=== PATIENT | female | born 1960 | race Caucasian/White ===

== ENCOUNTER 2022-07-09 07:22 | Inpatient (IN) | payer OTHER, MEDICAID ==
[~2022-07-09] VITALS: Ht 162.6 cm; Wt 73.0 kg
--- NOTE | 2022-07-09 13:38 | NUR ---
Admission Note: Pt. was admitted to the unit on a gurney via EMS transport from [facility]. Pt. is on a 5150 for DTS and GD. Per 5150: Pt. admitted to ongoing derogatory, disturbing auditory hallucinations. Pt. appeared distracted and disorganized. Pt. did not know if she could keep herself safe. Pt. has a history of schizophrenia and depression and was not taking medications. Pt. was compliant with the admission process and is currently reporting S/I with a plan to stop eating. She scores as a high risk on the [place] Suicide Risk Assessment and this was endorsed to Dr. Jang, Q 15min safety checks were ordered. Pt. is able to contract for safety while on the unit. Pt. also reports a previous suicide attempt involving carbon monoxide poisoning which caused her to accumulate blood in her brain requiring surgery. Pt. reports her speech has been slurred ever since this event. Pt. also reports ongoing A/BOSWELL which tell her, "She's a liar," and are command in nature at times. Pt. reports she drinks approximately 2 mixed drinks per day, but has never experienced any s/s of alcohol withdrawal. She also last used methamphetamines approximately 3 days ago.
[2022-07-09] MEDS ORDERED: mag hydrox/Alum hydrox/simeth 30ml oral suspension PO PRN (13:55)
[2022-07-09] MEDS ORDERED: loperamide 2mg capsule PO PRN (13:55)
[2022-07-09] MEDS ORDERED: acetaminophen 325mg tablet PO PRN (13:55)
[2022-07-09 14:14] VITALS: BP 122/76
[2022-07-09] MEDS: magnesium hydroxide 30ml (MOM) UD suspension PO PRN (16:33)
[2022-07-09] MEDS ORDERED: MULT-1085 PO (16:34)
[2022-07-09] MEDS ORDERED: KEP500T PO (16:34)
[2022-07-09] MEDS ORDERED: PANT-47 PO (16:34)
[2022-07-09] MEDS ORDERED: TRAZ-251 PO (16:34)
[2022-07-09] MEDS ORDERED: OLAN5TAB3 PO ×2 (16:34)
[2022-07-09] MEDS ORDERED: FOLI1TAB27 PO (16:34)
[2022-07-09] MEDS: NICOTINE POLACRILEX 2 MG LOZENGE BC PRN (19:26)
[2022-07-09 20:00] VITALS: BP 118/73
[2022-07-09] MEDS: levetiracetam 250mg tablet PO SCH (20:44)
[2022-07-09] MEDS ORDERED: traZODone 50mg tablet PO SCH (21:00)
[2022-07-09] MEDS ORDERED: OLANZAPINE 5 MG TABLET PO SCH (21:00)
--- NOTE | 2022-07-10 05:21 | NUR ---
Nursing Progress Note Problem Pt. was admitted to the unit on a gurney via EMS transport from [facility]. Pt. is on a 5150 for DTS and GD. Per 5150: Pt. admitted to ongoing derogatory, disturbing auditory hallucinations. Pt. appeared distracted and disorganized. Pt. did not know if she could keep herself safe. Pt. has a history of schizophrenia and depression and was not taking medications. Pt. was compliant with the admission process and is currently reporting S/I with a plan to stop eating. She scores as a high risk on the [place] Suicide Risk Assessment and this was endorsed to Dr. Jang, Q 15min safety checks were ordered. Pt. is able to contract for safety while on the unit. Pt. also reports a previous suicide attempt involving carbon monoxide poisoning which caused her to accumulate blood in her brain requiring surgery. Pt. reports her speech has been slurred ever since this event. Pt. also reports ongoing A/BOSWELL which tell her, "She's a liar," and are command in nature at times. Pt. reports she drinks approximately 2 mixed drinks per day, but has never experienced any s/s of alcohol withdrawal. She also last used methamphetamines approximately 3 days ago. Interventions: Introduced self and established rapport, maintained a safe and supportive environment, ensured contract for safety, provided clear and simple instructions, provided active listening and positive encouragement, and maintained Q 15min safety checks. Response: Patient was found lying in bed reading at beginning of shift. Patient stayed there until making her way into community room socializing with other patients. Patient was pleasant and cooperative. Patient stated she is hearing voices but its like constant background noise. Patient stated she feels safe here. Patient was worried about her night medications and nurse went over what all of them were for. Patient took medications without issue and returned to community room. Patient did peak out of room checking hallways and was reminded she was okay and safe. Patient came out of room without pants and had to be assisted back into room. Plan: Pt. continues to require a safe and supportive environment and medication adjustments.
[2022-07-10 07:34] LABS: CHOL/HDL RATIO 3.6 (0.00-4.99); CHOLESTEROL 166 MG/DL (0-200); HDL CHOLESTEROL 46 MG/DL (35-60); LDL CHOLESTEROL 91 MG/DL (50-100); TRIGLYCERIDES 173 MG/DL (20-135)
[2022-07-10 08:00] VITALS: BP 124/63
[2022-07-10] MEDS ORDERED: OLANZAPINE 5 MG TABLET PO SCH (08:00)
[2022-07-10 08:10] LABS: HEMOGLOBIN A1C 5.1 % (4.5-6.2)
[2022-07-10] MEDS: folic acid 1mg tablet PO SCH (08:46)
[2022-07-10] MEDS: levetiracetam 250mg tablet PO SCH ×2 (08:47→20:35)
[2022-07-10] MEDS: NICOTINE POLACRILEX 2 MG LOZENGE BC PRN (08:47)
[2022-07-10] MEDS: multivitamins, therapeutics tablet PO SCH (08:47)
[2022-07-10] MEDS: pantoprazole 40mg Tablet.DR PO SCH (08:47)
[2022-07-10] MEDS: magnesium hydroxide 30ml (MOM) UD suspension PO PRN (08:48)
[2022-07-10] MEDS: nicotine 14mg patch - 24hr TD SCH (08:48)
--- NOTE | 2022-07-10 14:27 | NUR ---
Nursing Progress Note: Problem : Pt. was admitted to the unit on a gurney via EMS transport from [facility]. Pt. is on a 5150 for DTS and GD. Per 5150: Pt. admitted to ongoing derogatory, disturbing auditory hallucinations. Pt. appeared distracted and disorganized. Pt. did not know if she could keep herself safe. Pt. has a history of schizophrenia and depression and was not taking medications. Interventions : Maintained a safe and supportive environment, provide clear and simple instructions, attempted to orient to reality, provided active listening and positive encouragement, and maintained Q 15min safety checks. Response : Received pt. sleeping in bed at the beginning of the shift. She attended breakfast in the Group Room with direction from staff and afterwards sat up in bed completing a word search. 1:1 was completed at bedside, pt. presents as cooperative and slightly anxious. When questioned regarding S/I, she states tearfully, "No, but I could just go peacefully." Pt. denies any current S/I plan. She also admits to ongoing command A/BOSWELL at intervals. Pt. states, "Sometimes they just give me advice, like go out on the streets and be homeless." This scientific technical writer provided active listening and positive encouragement and pt. reported contentment. Pt. napped intermittently during the shift, and was observed to be interacting minimally with others. Plan : Pt. requires interruption of current crisis, medication adjustments, and a safe and supportive environment.
[2022-07-10] MEDS ORDERED: traZODone 50mg tablet PO PRN (16:40)
[2022-07-10] MEDS ORDERED: sertraline 25mg tablet PO ONE (16:40)
[2022-07-10 20:00] VITALS: BP 128/80
[2022-07-10] MEDS ORDERED: olanzapine 10mg tablet PO SCH (21:00)
[2022-07-10] MEDS ORDERED: OLANZapine 5mg rapidly disint. tablet PO ONE (21:55)
[2022-07-10] MEDS: traZODone 50mg tablet PO PRN (22:04)
--- NOTE | 2022-07-11 01:40 | NUR ---
Nursing Progress Note: Problem : Pt. was admitted to the unit on a gurney via EMS transport from [facility]. Pt. is on a 5150 for DTS and GD. Per 5150: Pt. admitted to ongoing derogatory, disturbing auditory hallucinations. Pt. appeared distracted and disorganized. Pt. did not know if she could keep herself safe. Pt. has a history of schizophrenia and depression and was not taking medications. Interventions : Maintained a safe and supportive environment, provide clear and simple instructions, attempted to orient to reality, provided active listening and positive encouragement, and maintained Q 15min safety checks. Response :Patient in bed doing crosswords at shift change. Patient denies SI HI. Patient does state that she thinks of starving herself but it would be long and painful. Patient reports +A/H. Patient claims that the voices make negative comments whenever she wants to do something positive for herself. The patient was wearing two sets of reading eye glasses. When asked if she could see out of the glasses the pt responded that she sees better with them on and they help her read. The patient at snack in the community room at snack time. The patient took her evening meds w/o complications. The patient went to sleep a short time later. Plan : Pt. requires interruption of current crisis, medication adjustments, and a safe and supportive environment.
[2022-07-11 08:00] VITALS: BP 96/60
[2022-07-11] MEDS: pantoprazole 40mg Tablet.DR PO SCH (08:45)
[2022-07-11] MEDS: folic acid 1mg tablet PO SCH (08:45)
[2022-07-11] MEDS: sertraline 50mg tablet PO SCH (08:45)
[2022-07-11] MEDS: multivitamins, therapeutics tablet PO SCH (08:45)
[2022-07-11] MEDS: levetiracetam 250mg tablet PO SCH ×2 (08:45→20:19)
[2022-07-11] MEDS: nicotine 14mg patch - 24hr TD SCH (08:46)
[2022-07-11] MEDS: NICOTINE POLACRILEX 2 MG LOZENGE BC PRN ×2 (08:48→15:32)
[2022-07-11] MEDS: magnesium hydroxide 30ml (MOM) UD suspension PO PRN (08:48)
--- NOTE | 2022-07-11 14:19 | NUR ---
Nursing Progress Note: Problem : Pt. was admitted to the unit on a gurney via EMS transport from [facility]. Pt. is on a 5150 for DTS and GD. Per 5150: Pt. admitted to ongoing derogatory, disturbing auditory hallucinations. Pt. appeared distracted and disorganized. Pt. did not know if she could keep herself safe. Pt. has a history of schizophrenia and depression and was not taking medications. Interventions : Maintained a safe and supportive environment, provide clear and simple instructions, attempted to orient to reality, provided active listening and positive encouragement, encouraged independent performance of ADLs, and maintained Q 15min safety checks. Response : Received pt. sleeping in bed at the beginning of the shift, she was awoken to attended breakfast in the Group Room and afterwards retreated back to bed. Pt. greeted this senior grant writer appropriately and requested her morning medications, she continues to present as cooperative and slightly anxious. Pt. continues to endorse ongoing negative A/BOSWELL and states, "They tell me I'd be better off not here." She also endorses passive S/I, however denies any plan but states, "They tell me not to eat sometimes." Pt. appears to have some difficulty expressing her thoughts and she continues to exhibit chronic dysarthria. Pt. was placed on a 5250 mental hai hold. Pt. napped intermittently during the shift, and continues to remain withdrawn from others. She showered independently with set-up help only. Plan : Pt. requires medication adjustments and a safe and supportive environment.
[2022-07-11] MEDS: traZODone 50mg tablet PO PRN (20:19)
[2022-07-11] MEDS: olanzapine 10mg tablet PO SCH (20:19)
[2022-07-11 20:22] VITALS: BP 120/53
--- NOTE | 2022-07-11 23:46 | NUR ---
Nursing Progress Note: Problem : Pt. was admitted to the unit on a gurney via EMS transport from [facility]. Pt. is on a 5150 for DTS and GD. Per 5150: Pt. admitted to ongoing derogatory, disturbing auditory hallucinations. Pt. appeared distracted and disorganized. Pt. did not know if she could keep herself safe. Pt. has a history of schizophrenia and depression and was not taking medications. Interventions : Maintained a safe and supportive environment, provide clear and simple instructions, attempted to orient to reality, provided active listening and positive encouragement, and maintained Q 15min safety checks. Response :Patient in community room sitting with cohorts at shift change. Patient 1:1, pt denies SI HI this shift. Patient does report that she has negative voices telling her that she is worthless and overall negative in her life. patient spent most of the evening in community room socializing with other patients. Patient took evening meds w/o complications. Patient ate snack in the community room. Patient went to bed shortly after snack and med pass. Plan : Pt. requires interruption of current crisis, medication adjustments, and a safe and supportive environment.
[2022-07-12 07:46] VITALS: BP 121/66
[2022-07-12] MEDS: multivitamins, therapeutics tablet PO SCH (08:18)
[2022-07-12] MEDS: nicotine 14mg patch - 24hr TD SCH (08:18)
[2022-07-12] MEDS: folic acid 1mg tablet PO SCH (08:18)
[2022-07-12] MEDS: levetiracetam 250mg tablet PO SCH ×2 (08:18→20:53)
[2022-07-12] MEDS: sertraline 50mg tablet PO SCH (08:18)
[2022-07-12] MEDS: pantoprazole 40mg Tablet.DR PO SCH (08:18)
--- NOTE | 2022-07-12 13:19 | NUR ---
5250 Upheld for DTS and GD
--- NOTE | 2022-07-12 16:50 | NUR ---
Nursing Progress Note: Problem: Pt. was admitted to the unit on a gurney via EMS transport from [facility]. Pt. is on a 5150 for DTS and GD. Per 5150: Pt. admitted to ongoing derogatory, disturbing auditory hallucinations. Pt. appeared distracted and disorganized. Pt. did not know if she could keep herself safe. Pt. has a history of schizophrenia and depression and was not taking medications. Interventions: Provide medication administration & medication management; Maintained a safe & supportive environment; Clear & simple instructions; Direction & encouragement regarding performance of ADLs; monitored behaviors & maintained clear boundaries; Patient physical assessment & 1:1 patient interview; Therapeutic conversation & active listening; Patient education & monitoring. Response: Received patient when I entered her room at 0745 and was awake. Patient took po medications scheduled at 0800 without hesitation. Patient started crying and this Commission Clerk attempted to console her. Patient states I am worthless and Im hearing voices that tell me to hurt myself. Patient underwent 1:1 Physical Assessment and Patient Interview. Patient reports these voices kept her awake last night. Patient denies SI and VH at this time. This personal lines underwriter listened to the patient and assisted her with encouragement. Patient ate breakfast then laid back down in bed and appeared to rest comfortably until lunchtime around 1230. Patient has Hep B & TSH labs pending results at this time. Patient woke up for snacks and meal times but then returned back to bed to rest and appears to be sleeping. Will continue to monitor. Plan: Pt. requires medication adjustments and a safe and supportive environment.
[2022-07-12 19:00] VITALS: BP 138/75
[2022-07-12] MEDS: olanzapine 10mg tablet PO SCH (20:52)
[2022-07-12] MEDS: traZODone 50mg tablet PO PRN (20:52)
[2022-07-13 05:14] LABS: HBSAG SCREEN Negative (Negative); HEP B CORE AB, TOT Negative (Negative)
--- NOTE | 2022-07-13 05:32 | NUR ---
Nursing Progress Note: Problem: Pt. was admitted to the unit on a gurney via EMS transport from [facility]. Pt. is on a 5150 for DTS and GD. Per 5150: Pt. admitted to ongoing derogatory, disturbing auditory hallucinations. Pt. appeared distracted and disorganized. Pt. did not know if she could keep herself safe. Pt. has a history of schizophrenia and depression and was not taking medications. Interventions: Provide medication administration & medication management; Maintained a safe & supportive environment; Clear & simple instructions; Direction & encouragement regarding performance of ADLs; monitored behaviors & maintained clear boundaries; Patient physical assessment & 1:1 patient interview; Therapeutic conversation & active listening; Patient education & monitoring. Response: Patient is pleasant and cooperative with care; compliant with medication. PRN Trazodone provided and Nicotine patch removed. Patient endorsed passive SI; feelings of wanting to but not planning to act on it. She also explained having negative AH; voices telling her nobody cares about her and her family doesn't want her. Patient mostly isolative to room doing crosswords. She participated in HS snack prior to bed; observed sleeping and does not appear to be having difficulty. Plan: Pt. requires medication adjustments and a safe and supportive environment.
[2022-07-13 07:41] VITALS: BP 125/68
[2022-07-13] MEDS: folic acid 1mg tablet PO SCH (08:11)
[2022-07-13] MEDS: pantoprazole 40mg Tablet.DR PO SCH (08:11)
[2022-07-13] MEDS: levetiracetam 250mg tablet PO SCH ×2 (08:12→20:21)
[2022-07-13] MEDS: multivitamins, therapeutics tablet PO SCH (08:12)
[2022-07-13] MEDS: nicotine 14mg patch - 24hr TD SCH (08:12)
[2022-07-13] MEDS: sertraline 25mg tablet PO SCH (08:12)
[2022-07-13] MEDS: LORazepam 1 MG tablet PO PRN (14:04)
[2022-07-13] MEDS: olanzapine 10mg tablet PO PRN ×2 (14:05→22:11)
--- NOTE | 2022-07-13 16:58 | NUR ---
Nursing Progress Note: Problem: Pt. was admitted to the unit on a gurney via EMS transport from [facility]. Pt. is on a 5150 for DTS and GD. Per 5150: Pt. admitted to ongoing derogatory, disturbing auditory hallucinations. Pt. appeared distracted and disorganized. Pt. did not know if she could keep herself safe. Pt. has a history of schizophrenia and depression and was not taking medications. Interventions: Provide medication administration & medication management; Maintained a safe & supportive environment; Clear & simple instructions; Direction & encouragement regarding performance of ADLs; monitored behaviors & maintained clear boundaries; Patient physical assessment & 1:1 patient interview; Therapeutic conversation & active listening; Patient education & monitoring. Response: Received this patient when she was awake at 0645 sitting up in bed and completing some word find games. Patient is pleasant and cooperative and reports that her auditory hallucinations were slightly improved when she slept last night and today. Patient reports passive SI. Patient attended Group this morning and participated well. At approximately 1330 Dr. Jang had seen the patient in his office when the patient came up to me close to 1400 and informed that the would like to speak with her when she was experiencing Auditory Hallucinations. Patient stated she returned to her room after seeing Dr. Jang, and started experiencing voices telling her to leave our facility. She met with Dr. Jang again briefly, and he ordered Zyprexa 10mg po now and Ativan 1mg po now. Patient received the first dose at 1404. This is the first dose of both of these meds for this patient since her admission to [facility]. Patient will be monitored closely over the next few hours. Patient decided to lay down and states she would like to go to sleep at this time. Checked back with the patient approximately 1 hour later and she was lying down in bed and appeared to be sleeping. Plan: Pt. requires medication adjustments and a safe and supportive environment.
[2022-07-13 19:40] VITALS: BP 136/83
[2022-07-13] MEDS: traZODone 50mg tablet PO PRN ×2 (20:21→22:10)
[2022-07-13] MEDS ORDERED: olanzapine 10mg tablet PO SCH (21:00)
--- NOTE | 2022-07-14 05:27 | NUR ---
Nursing Progress Note: Problem: Pt. was admitted to the unit on a gurney via EMS transport from [facility]. Pt. is on a 5150 for DTS and GD. Per 5150: Pt. admitted to ongoing derogatory, disturbing auditory hallucinations. Pt. appeared distracted and disorganized. Pt. did not know if she could keep herself safe. Pt. has a history of schizophrenia and depression and was not taking medications. Interventions: Provide medication administration & medication management; Maintained a safe & supportive environment; Clear & simple instructions; Direction & encouragement regarding performance of ADLs; monitored behaviors & maintained clear boundaries; Patient physical assessment & 1:1 patient interview; Therapeutic conversation & active listening; Patient education & monitoring. Response: Patient is pleasant and cooperative with care; compliant with medication. Nicotine patch removed. PRN Trazodone and Zyprexa provided this shift. Patient reported AH; denies SI this shift. No apparent delusions expressed. Patient was social with peers and participated in HS snack prior to bed; she reported difficulty getting to sleep d/t the voices. Repeat Trazodone and Zyprexa provided at that time; appeared to be sleeping without difficulty post medication. Plan: Pt. requires medication adjustments and a safe and supportive environment.
[2022-07-14 08:00] VITALS: BP 103/56
[2022-07-14] MEDS: sertraline 25mg tablet PO SCH (08:44)
[2022-07-14] MEDS: folic acid 1mg tablet PO SCH (08:44)
[2022-07-14] MEDS: levetiracetam 250mg tablet PO SCH ×2 (08:44→20:11)
[2022-07-14] MEDS: pantoprazole 40mg Tablet.DR PO SCH (08:44)
[2022-07-14] MEDS: multivitamins, therapeutics tablet PO SCH (08:44)
[2022-07-14] MEDS: nicotine 14mg patch - 24hr TD SCH (08:46)
--- NOTE | 2022-07-14 09:41 | NUR ---
Initial: Pt admit for SI. Currently on a regular diet and eating well, documented with mostly 100% PO intake meeting estimated nutrient needs. LBM 07/13, receiving routine and PRN bowel care. No nutrition intervention implemented at this time. Will continue to follow. Addendum: 07/14/22 at [address] Amended: Links added.
[2022-07-14] MEDS ORDERED: LORazepam 1 MG tablet PO ONE ×2 (11:10→14:30)
[2022-07-14] MEDS ORDERED: olanzapine 10mg tablet PO ONE (11:10)
[2022-07-14] MEDS ORDERED: OLANZapine 2.5MG tablet PO ONE (14:30)
[2022-07-14] MEDS ORDERED: OLANZAPINE 5 MG TABLET PO ONE (14:45)
[2022-07-14] MEDS: acetaminophen 325mg tablet PO PRN (14:48)
--- NOTE | 2022-07-14 15:12 | NUR ---
Therapeutic group Client attended group today. Todays group focused on a breathing and sensory exercise of freeform drawing with breathing, calm music. Today's addition, requested by clients, was using words for trees (strength) and birds (resilience, flexibility, adaptability). Clients were then asked to explain their choices, with peer encouragement and input. Client was dressed neatly, hygiene WNL. Client interacted with material as evidenced by coming to group for approximately 10 minutes, listening quietly, and then leaving the room.
--- NOTE | 2022-07-14 17:16 | NUR ---
Nursing Progress Note: Nieves Problem: Pt. admitted from [facility]. Pt. is on a 5150 for DTS and GD. Per 5150: Pt. admitted to ongoing derogatory, disturbing auditory hallucinations. Pt. appeared distracted and disorganized. Pt. did not know if she could keep herself safe. Pt. has a history of schizophrenia and depression and was not taking medications. Interventions: Provide medication administration & medication management; Maintained a safe & supportive environment; Clear & simple instructions; Direction & encouragement regarding performance of ADLs; monitored behaviors & maintained clear boundaries; Patient physical assessment & 1:1 patient interview; Therapeutic conversation & active listening; Patient education & monitoring. Response: Pt. received asleep and awoke before breakfast. She took her medication without hesitation and reported LBM 2-3days ago, with feeling constipated PRN MOM given; pending results. She denies SI, but reports I wish I could go to sleep and never wake up she presents with a slowed verbal response. She denies HI, VH, and endorses AH, stating I hear voices all day, all night, sometimes they tell me to do things, like not to go home She spent time in her room working on [employer], and socialized with a few female cohorts. N.O one time Zyprexa and Ativan given per order, she also c/o BOSWELL and requested Tylenol; meds were effective. She ate all meals in the community room and interacts appropriately, she has good hygiene, hair brushed and in a bun. Plan: Pt. requires medication adjustments and a safe and supportive environment.
[2022-07-14 19:00] VITALS: BP 141/78
[2022-07-14] MEDS: traZODone 50mg tablet PO PRN (20:11)
[2022-07-14] MEDS: olanzapine 10mg tablet PO SCH (20:12)
--- NOTE | 2022-07-15 03:07 | NUR ---
Nursing Progress Note: Problem: Pt. was admitted to the unit on a gurney via EMS transport from [facility]. Pt. is on a 5150 for DTS and GD. Per 5150: Pt. admitted to ongoing derogatory, disturbing auditory hallucinations. Pt. appeared distracted and disorganized. Pt. did not know if she could keep herself safe. Pt. has a history of schizophrenia and depression and was not taking medications. Interventions: Provide medication administration & medication management; Maintained a safe & supportive environment; Clear & simple instructions; Direction & encouragement regarding performance of ADLs; monitored behaviors & maintained clear boundaries; Patient physical assessment & 1:1 patient interview; Therapeutic conversation & active listening; Patient education & monitoring. Response: Patient is pleasant and cooperative with care; compliant with medication. PRN Trazodone provided and Nicotine patch removed. Denies HI and VH; continues to express passive SI and command AH. Patient observed socializing with peers and participated in HS snack prior to bed; observed sleeping and does not appear to be having difficulty. Plan: Pt. requires medication adjustments and a safe and supportive environment.
[2022-07-15 07:42] VITALS: BP 115/68
[2022-07-15] MEDS: multivitamins, therapeutics tablet PO SCH (07:47)
[2022-07-15] MEDS: pantoprazole 40mg Tablet.DR PO SCH (07:49)
[2022-07-15] MEDS: sertraline 25mg tablet PO SCH (07:49)
[2022-07-15] MEDS: levetiracetam 250mg tablet PO SCH ×2 (07:49→20:18)
[2022-07-15] MEDS: folic acid 1mg tablet PO SCH (07:49)
[2022-07-15] MEDS: nicotine 14mg patch - 24hr TD SCH (08:16)
[2022-07-15] MEDS ORDERED: LORazepam 1 MG tablet PO ONE (14:45)
[2022-07-15] MEDS ORDERED: olanzapine 10mg tablet PO ONE (14:45)
--- NOTE | 2022-07-15 17:18 | NUR ---
Nursing Progress Note: Problem: Pt. was admitted to the unit on a gurney via EMS transport from [facility]. Pt. is on a 5150 for DTS and GD. Per 5150: Pt. admitted to ongoing derogatory, disturbing auditory hallucinations. Pt. appeared distracted and disorganized. Pt. did not know if she could keep herself safe. Pt. has a history of schizophrenia and depression and was not taking medications. Interventions: 1:1 assessment, establishment of rapport, therapeutic conversation, active listening, ensured contract for safety, medication administration/education/monitoring, provided distraction, direction, positive reinforcement, and Q15 minute safety checks. Response: Pt was up for breakfast. Pt was cooperative with medications. Pt rated her depression at an 8/10. Pt denied SI but endorsed AH with some CAH. Pt stated that the voices say "I'm a liar...I should starve myself." After this nurse asked the pt when her last bowel movement was, pt reported that the voices started talking about bowel movements. Pt denied VH/HI. Pt participated in unit activities. Pt went out on the patio today with peers. Pt was given one time doses of Ativan 1 mg and Zyprexa 10 mg at 1521 after meeting with the psychiatrist. Plan: Pt requires medication adjustments and management in a safe and supportive environment until stable.
[2022-07-15 19:00] VITALS: BP 125/70
[2022-07-15] MEDS: olanzapine 10mg tablet PO SCH (20:21)
[2022-07-15] MEDS: traZODone 50mg tablet PO PRN (20:25)
--- NOTE | 2022-07-16 00:33 | NUR ---
Nursing Progress Note: Problem: Pt. was admitted to the unit on a gurney via EMS transport from [facility]. Pt. is on a 5150 for DTS and GD. Per 5150: Pt. admitted to ongoing derogatory, disturbing auditory hallucinations. Pt. appeared distracted and disorganized. Pt. did not know if she could keep herself safe. Pt. has a history of schizophrenia and depression and was not taking medications. Interventions: Provide medication administration & medication management; Maintained a safe & supportive environment; Clear & simple instructions; Direction & encouragement regarding performance of ADLs; monitored behaviors & maintained clear boundaries; Patient physical assessment & 1:1 patient interview; Therapeutic conversation & active listening; Patient education & monitoring. Response: Patient lying in bed awake at change of shift. Pt. is pleasant and cooperative. She isolated to the room most of the evening. Denies HI and VH. States she feels "so-so". Reports a little depression. Reports voices are telling her to leave. Continues to have passive SI. Compliant with medications. Snack provided to patient in room . Nicotine patch removed. Patient appears to be sleeping without difficulty. Plan: Pt. requires medication adjustments and a safe and supportive environment.
[2022-07-16 07:45] VITALS: BP 105/71
[2022-07-16] MEDS: multivitamins, therapeutics tablet PO SCH (07:57)
[2022-07-16] MEDS: levetiracetam 250mg tablet PO SCH ×2 (07:57→20:02)
[2022-07-16] MEDS: sertraline 25mg tablet PO SCH (07:57)
[2022-07-16] MEDS: folic acid 1mg tablet PO SCH (07:57)
[2022-07-16] MEDS: pantoprazole 40mg Tablet.DR PO SCH (07:57)
[2022-07-16] MEDS: acetaminophen 325mg tablet PO PRN (07:58)
[2022-07-16] MEDS: nicotine 14mg patch - 24hr TD SCH (08:03)
[2022-07-16] MEDS: LORazepam 1 MG tablet PO PRN (13:43)
[2022-07-16] MEDS: olanzapine 10mg tablet PO PRN (13:43)
--- NOTE | 2022-07-16 15:41 | NUR ---
Nursing Progress Note: Problem: Pt. was admitted to the unit on a gurney via EMS transport from [facility]. Pt. is on a 5150 for DTS and GD. Per 5150: Pt. admitted to ongoing derogatory, disturbing auditory hallucinations. Pt. appeared distracted and disorganized. Pt. did not know if she could keep herself safe. Pt. has a history of schizophrenia and depression and was not taking medications. Interventions: 1:1 assessment, establishment of rapport, therapeutic conversation, active listening, ensured contract for safety, medication administration/education/monitoring, anxiety management, provided distraction, direction, positive reinforcement, and Q15 minute safety checks. Response: Pt was up for breakfast. Pt was cooperative with her medications. Pt c/o headache pain 5/10 and was given PRN Tylenol 650 mg at 0758 with good effect. Pt continues to c/o persistent derogatory AH that that tell her, "You're a piece of shit...you don't deserve to live." The voices produce high levels of anxiety. They tend to picker box operator throughout the day. Pt is not good about coming to staff when she needs a PRN. Discussed this with psychiatrist Dr Jang. Pt medicated with PRN Ativan 1 mg and Zyprexa 10 mg at 1343 for anxiety/agitation due to mean, derogatory voices with good effect. Plan: Pt requires medication adjustments and management in a safe and supportive environment until stable. Addendum: 07/16/22 at 1700 by Estefani Simmons RN (Lee) Pt has new orders for Ativan 1 mg and Zyprexa 10 mg daily at 1200.
[2022-07-16 19:41] VITALS: BP 126/72
[2022-07-16] MEDS: olanzapine 10mg tablet PO SCH (20:02)
[2022-07-16] MEDS: traZODone 50mg tablet PO PRN ×2 (20:02→22:01)
--- NOTE | 2022-07-17 00:23 | NUR ---
Nursing Progress Note: Problem: Pt. was admitted to the unit on a gurney via EMS transport from [facility]. Pt. is on a 5150 for DTS and GD. Per 5150: Pt. admitted to ongoing derogatory, disturbing auditory hallucinations. Pt. appeared distracted and disorganized. Pt. did not know if she could keep herself safe. Pt. has a history of schizophrenia and depression and was not taking medications. Interventions: Provide medication administration & medication management; Maintained a safe & supportive environment; Clear & simple instructions; Direction & encouragement regarding performance of ADLs; monitored behaviors & maintained clear boundaries; Patient physical assessment & 1:1 patient interview; Therapeutic conversation & active listening; Patient education & monitoring. Response: received patient sitting quietly in room working on a word search at shift change. She is pleasant and soft spoken. Compliant with her medications. Stays in room until snack is available. Isolates to self. Patient reported feeling " a little nervous". Continues to have AH. Reports "she rather be than to have to listen to the voices". Later in the evening patient requested to have the repeat of PRN Trazodone. Patient appears to be sleeping without difficulty. Plan: Pt. requires medication adjustments and a safe and supportive environment.
[2022-07-17 08:00] VITALS: BP 119/68
[2022-07-17] MEDS: levetiracetam 250mg tablet PO SCH ×2 (09:11→20:14)
[2022-07-17] MEDS: folic acid 1mg tablet PO SCH (09:12)
[2022-07-17] MEDS: sertraline 25mg tablet PO SCH (09:12)
[2022-07-17] MEDS: pantoprazole 40mg Tablet.DR PO SCH (09:12)
[2022-07-17] MEDS: multivitamins, therapeutics tablet PO SCH (09:12)
[2022-07-17] MEDS: nicotine 14mg patch - 24hr TD SCH (09:12)
[2022-07-17] MEDS: olanzapine 10mg tablet PO SCH ×2 (12:57→20:15)
[2022-07-17] MEDS: LORazepam 1 MG tablet PO SCH (12:57)
--- NOTE | 2022-07-17 13:32 | NUR ---
Nursing Progress Note: Problem: Pt. was admitted to the unit on a gurney via EMS transport from [facility]. Pt. is on a 5150 for DTS and GD. Per 5150: Pt. admitted to ongoing derogatory, disturbing auditory hallucinations. Pt. appeared distracted and disorganized. Pt. did not know if she could keep herself safe. Pt. has a history of schizophrenia and depression and was not taking medications. Interventions: 1:1 assessment with therapeutic communication and active listening, medication administration/education/monitoring, anxiety management, provided distraction, direction, positive reinforcement, monitored Q15 minute safety checks. Response: Pt up for breakfast. Pt cooperative with medications, assessments and all treatments. She continues to c/o persistent AH that are both negative and derogatory. She states today I heard, "You are going to be committed for the rest of your life' 'You will never leave here." Earlier she heard them say, "You know you live on the streets." Pt agreed to talk to staff when her voices cause anxiety. Plan: Pt requires medication adjustments and management in a safe and supportive environment until stable.
[2022-07-17] MEDS: olanzapine 10mg tablet PO PRN (16:36)
[2022-07-17 20:00] VITALS: BP 114/64
[2022-07-17] MEDS: traZODone 50mg tablet PO PRN ×2 (20:14→21:37)
--- NOTE | 2022-07-18 00:17 | NUR ---
Nursing Progress Note: Problem: Pt. was admitted to the unit on a gurney via EMS transport from [facility]. Pt. is on a 5150 for DTS and GD. Per 5150: Pt. admitted to ongoing derogatory, disturbing auditory hallucinations. Pt. appeared distracted and disorganized. Pt. did not know if she could keep herself safe. Pt. has a history of schizophrenia and depression and was not taking medications. Interventions: Provide medication administration & medication management; Maintained a safe & supportive environment; Clear & simple instructions; Direction & encouragement regarding performance of ADLs; monitored behaviors & maintained clear boundaries; Patient physical assessment & 1:1 patient interview; Therapeutic conversation & active listening; Patient education & monitoring. Response: In room at start of shift. Observed socializing more this evening walking the hawk with room mate. Participated in snack in community room. Returned to room shortly afterwards. Compliant with medications. Nicotine patch removed. Reports depression and the AH come and go. Denies SI/HI. Observed and appears to be sleeping without difficulty. Plan: Pt. requires medication adjustments and a safe and supportive environment.
[2022-07-18 08:00] VITALS: BP 110/68
[2022-07-18] MEDS: nicotine 14mg patch - 24hr TD SCH (08:08)
[2022-07-18] MEDS: sertraline 25mg tablet PO SCH (08:09)
[2022-07-18] MEDS: pantoprazole 40mg Tablet.DR PO SCH (08:09)
[2022-07-18] MEDS: levetiracetam 250mg tablet PO SCH ×2 (08:09→20:40)
[2022-07-18] MEDS: folic acid 1mg tablet PO SCH (08:09)
[2022-07-18] MEDS: multivitamins, therapeutics tablet PO SCH (08:09)
[2022-07-18] MEDS: LORazepam 1 MG tablet PO SCH (12:32)
[2022-07-18] MEDS: olanzapine 10mg tablet PO SCH ×2 (12:32→20:39)
--- NOTE | 2022-07-18 16:25 | NUR ---
Nursing Progress Note: Problem: Pt. was admitted to the unit on a gurney via EMS transport from [facility]. Pt. is on a 5150 for DTS and GD. Per 5150: Pt. admitted to ongoing derogatory, disturbing auditory hallucinations. Pt. appeared distracted and disorganized. Pt. did not know if she could keep herself safe. Pt. has a history of schizophrenia and depression and was not taking medications. Interventions: Provide medication administration & medication management; Maintained a safe & supportive environment; Clear & simple instructions; Direction & encouragement regarding performance of ADLs; monitored behaviors & maintained clear boundaries; Patient physical assessment & 1:1 patient interview; Therapeutic conversation & active listening; Patient education & monitoring. Response: Received patient to wake up for breakfast at 0745. Patient went to the Community Room for breakfast and sat by herself. Patient took her medications without hesitation. Patient states she was feeling slightly better this week. Patient reports she was having auditory hallucinations but they had gone away by 8:15 this morning. Patient received her Habitrol patch which she reports is helping her refrain from smoking and then returned to bed after breakfast and completed crossword puzzles until approximately 1000 and fell asleep until 1245 when she was woke up for lunch. Patient ate lunch in the Community Room and participated in snack times. Will continue to monitor patient closely. Plan: Pt. requires medication adjustments and a safe and supportive environment.
[2022-07-18 20:00] VITALS: BP 114/74
[2022-07-18] MEDS: traZODone 50mg tablet PO PRN (20:40)
--- NOTE | 2022-07-19 00:13 | NUR ---
Nursing Progress Note: Problem: Pt. was admitted to the unit on a gurney via EMS transport from [facility]. Pt. is on a 5150 for DTS and GD. Per 5150: Pt. admitted to ongoing derogatory, disturbing auditory hallucinations. Pt. appeared distracted and disorganized. Pt. did not know if she could keep herself safe. Pt. has a history of schizophrenia and depression and was not taking medications. Interventions: Provide medication administration & medication management; Maintained a safe & supportive environment; Clear & simple instructions; Direction & encouragement regarding performance of ADLs; monitored behaviors & maintained clear boundaries; Patient physical assessment & 1:1 patient interview; Therapeutic conversation & active listening; Patient education & monitoring. Response: Received patient lying in bed at change of shift. Cooperative and compliant with medications. Participated in snack in community room and returned to room shortly after. Reports depression. AH are telling her not to go home, her ex is trying to take it over, and they tell her to be a street person. Denies SI/HI. Reports a small BM today. Observed and appears to be sleeping at this time. Plan: Pt. requires medication adjustments and a safe and supportive environment.
[2022-07-19] MEDS: pantoprazole 40mg Tablet.DR PO SCH (07:48)
[2022-07-19] MEDS: levetiracetam 250mg tablet PO SCH ×2 (07:48→20:24)
[2022-07-19] MEDS: folic acid 1mg tablet PO SCH (07:48)
[2022-07-19] MEDS: sertraline 25mg tablet PO SCH (07:48)
[2022-07-19] MEDS: nicotine 14mg patch - 24hr TD SCH (07:48)
[2022-07-19] MEDS: multivitamins, therapeutics tablet PO SCH (07:51)
[2022-07-19 08:00] VITALS: BP 122/70
--- NOTE | 2022-07-19 11:54 | NUR ---
Spoke to Nieves's ex-, Zain (ph#[phone]), to inquire if she can return to her trailer. He reported they are working on taking care of a black mold situation. Yes, she can return to the trailer. MELISSA Tavarez
[2022-07-19] MEDS: LORazepam 1 MG tablet PO SCH (12:23)
[2022-07-19] MEDS: olanzapine 10mg tablet PO SCH ×2 (12:23→20:21)
--- NOTE | 2022-07-19 16:42 | NUR ---
Nursing Progress Note: Problem: Pt. was admitted to the unit on a gurney via EMS transport from [facility]. Pt. is on a 5150 for DTS and GD. Per 5150: Pt. admitted to ongoing derogatory, disturbing auditory hallucinations. Pt. appeared distracted and disorganized. Pt. did not know if she could keep herself safe. Pt. has a history of schizophrenia and depression and was not taking medications. Interventions: Provide medication administration & medication management; Maintained a safe & supportive environment; Clear & simple instructions; Direction & encouragement regarding performance of ADLs; monitored behaviors & maintained clear boundaries; Patient physical assessment & 1:1 patient interview; Therapeutic conversation & active listening; Patient education & monitoring. Response: Received patient who slept until 0745 and then was administered her morning medications without hesitation. Patient denies SI/AH/VH throughout the day. Patient rested in bed after breakfast up until 1140. Patient took her scheduled medications at noon, then ambulated multiple laps in the hallway with her roommate. Patient was encouraged to attend the Group Meeting this afternoon at 1400. Plan: Pt. requires medication adjustments and a safe and supportive environment.
[2022-07-19] MEDS: olanzapine 10mg tablet PO PRN (19:01)
[2022-07-19 20:00] VITALS: BP 141/84
--- NOTE | 2022-07-20 00:18 | NUR ---
Nursing Progress Note: Problem: Pt. was admitted to the unit on a gurney via EMS transport from [facility]. Pt. is on a 5150 for DTS and GD. Per 5150: Pt. admitted to ongoing derogatory, disturbing auditory hallucinations. Pt. appeared distracted and disorganized. Pt. did not know if she could keep herself safe. Pt. has a history of schizophrenia and depression and was not taking medications. Interventions: Provide medication administration & medication management; Maintained a safe & supportive environment; Clear & simple instructions; Direction & encouragement regarding performance of ADLs; monitored behaviors & maintained clear boundaries; Patient physical assessment & 1:1 patient interview; Therapeutic conversation & active listening; Patient education & monitoring. Response: Pt in room at start of shift. She denied SI she said she was hearing voices but they were not telling her to harm herself. Instead the voices were telling her to leave here and go live on the streets. The pt found this very disturbing, given PRN Zyprexa. Pt reported good results came to group room for snack, She took all HS meds went to bed and is sleeping at this time. Plan: Pt. requires medication adjustments and a safe and supportive environment.
[2022-07-20] MEDS: nicotine 14mg patch - 24hr TD SCH (07:21)
[2022-07-20] MEDS: levetiracetam 250mg tablet PO SCH ×2 (07:22→20:12)
[2022-07-20] MEDS: folic acid 1mg tablet PO SCH (07:22)
[2022-07-20] MEDS: sertraline 25mg tablet PO SCH (07:22)
[2022-07-20] MEDS: pantoprazole 40mg Tablet.DR PO SCH (07:22)
[2022-07-20] MEDS: multivitamins, therapeutics tablet PO SCH (07:22)
[2022-07-20 08:00] VITALS: BP 121/84
[2022-07-20] MEDS: LORazepam 1 MG tablet PO SCH (12:32)
[2022-07-20] MEDS: olanzapine 10mg tablet PO SCH ×2 (12:32→20:12)
--- NOTE | 2022-07-20 16:16 | NUR ---
Therapeutic group Client attended group today, leaving early. We did an Audrey's Day care to ourselves (words of affirmation/CBT). Each person shared with the group the things they respects about themselves: Courage, resilience, kindness, etc. Client engaged well in the group, writing a card to herself and then another to a loved one. Client's demeanor was calm, compliant and pleasant with her peers and this Box Worker, alert and oriented X 4. Her thought content and thought process were WNL. Client stated her favorite place is [facility]. Client found it difficult to write words of affirmation to herself. Addendum: 07/20/22 at 1621 by Francisca CASTELLANOS Correction: Client left group, stating she felt she was having a panic attack.
--- NOTE | 2022-07-20 16:42 | NUR ---
Nursing Progress Note: Problem: Pt. was admitted to the unit on a gurney via EMS transport from [facility]. Pt. is on a 5150 for DTS and GD. Per 5150: Pt. admitted to ongoing derogatory, disturbing auditory hallucinations. Pt. appeared distracted and disorganized. Pt. did not know if she could keep herself safe. Pt. has a history of schizophrenia and depression and was not taking medications. Interventions: Provide medication administration & medication management; Maintained a safe & supportive environment; Clear & simple instructions; Direction & encouragement regarding performance of ADLs; monitored behaviors & maintained clear boundaries; Patient physical assessment & 1:1 patient interview; Therapeutic conversation & active listening; Patient education & monitoring. Response: Patient was awake early this morning and appeared to be a little less disorganized than previous mornings. Patient continues with slightly slurred speech, as well as slight confusion as to where her room was located right after she ambulated down the hawk after eating breakfast in the Community Room this morning. Patient is pleasant and cooperative at all times, and took all of her 0800 medications without hesitation. Patient took a few naps then went to the Group Meeting at 1130. Patient was administered scheduled Zyprexa and Ativan at 1215, and reported Im hearing some voices that just started a few minutes ago. When asked if the voices were telling her anything she reported I dont know. Patient participated in snack times and meals in the Community Room. Plan: Pt. requires medication adjustments and a safe and supportive environment.
[2022-07-20] MEDS ORDERED: sertraline 25mg tablet PO ONE (16:45)
[2022-07-20 19:35] VITALS: BP 120/80
--- NOTE | 2022-07-20 21:05 | NUR ---
Nursing Progress Note: Problem: Pt. was admitted to the unit on a gurney via EMS transport from [facility]. Pt. is on a 5150 for DTS and GD. Per 5150: Pt. admitted to ongoing derogatory, disturbing auditory hallucinations. Pt. appeared distracted and disorganized. Pt. did not know if she could keep herself safe. Pt. has a history of schizophrenia and depression and was not taking medications. Interventions: Provide medication administration & medication management; Maintained a safe & supportive environment; Clear & simple instructions; Direction & encouragement regarding performance of ADLs; monitored behaviors & maintained clear boundaries; Patient physical assessment & 1:1 patient interview; Therapeutic conversation & active listening; Patient education & monitoring. Response: Patient was in the group room at change of shift. Pt states she continues to hear voices during the day and becomes tearful when talking about depression. Pt reports passive s/i during the day, "I think of overdosing on my meds sometimes, but nothing right now." Pt states the voices make her think to do it and reports the medicine has been helping with the voices but she still has them. Pt spent time with her roommate socializing, watching tv, and having snacks together. Pt worked on crossword puzzles before going to bed. Pt reports she sleeps well at night. Plan: Pt. requires medication adjustments and a safe and supportive environment.
[2022-07-21 07:38] VITALS: BP 126/66
[2022-07-21] MEDS: multivitamins, therapeutics tablet PO SCH (08:00)
[2022-07-21] MEDS: sertraline 50mg tablet PO SCH (08:58)
[2022-07-21] MEDS: LORazepam 1 MG tablet PO PRN (08:59)
[2022-07-21] MEDS: nicotine 14mg patch - 24hr TD SCH (09:00)
[2022-07-21] MEDS: levetiracetam 250mg tablet PO SCH ×2 (09:00→20:26)
[2022-07-21] MEDS: pantoprazole 40mg Tablet.DR PO SCH (09:00)
[2022-07-21] MEDS: folic acid 1mg tablet PO SCH (09:00)
[2022-07-21] MEDS: LORazepam 1 MG tablet PO SCH (12:28)
[2022-07-21] MEDS: olanzapine 10mg tablet PO SCH ×2 (12:28→20:26)
--- NOTE | 2022-07-21 15:11 | NUR ---
Client attended group today. Thought content WNL. Client was calm and pleasant to work with. This group built upon coping skills, as introduced in the AM group. This group focused on psycho-social education, specifically mental health resources. Each client received a one page hand out of crisis lines, warm lines, peer centers, and other resources. This production underwriter suggested each person have their crisis information ready, and their coping tools in place, and sometimes talking to a anonymous trained peer, via a peer warm line, is helpful for some people. Or texting [id number]. Or going to one of the peer centers each [facility] has (client's received that information for all nearby [facility]). The other part of group was empowerment, discussing that people with lived experience are now essential parts of the mental health system in [place] (as certified peers), and clients' insights are invaluable. This also built upon AM discussion of volunteering as a coping mechanism. The group then shared question. A morales issue was/is [place] living in [place]. This production underwriter affirmed this as a morales issue in accessing services, suggesting this may be something to figure out before a crisis. Francisca Chong MS, TRAVELING ELECTRICIAN
--- NOTE | 2022-07-21 16:38 | NUR ---
Nursing Progress Note: Problem: Pt. was admitted to the unit on a gurney via EMS transport from [facility]. Pt. is on a 5150 for DTS and GD. Per 5150: Pt. admitted to ongoing derogatory, disturbing auditory hallucinations. Pt. appeared distracted and disorganized. Pt. did not know if she could keep herself safe. Pt. has a history of schizophrenia and depression and was not taking medications. Interventions: Provided 1:1 assessment with therapeutic communication and active listening; Provided medication administration/education/monitoring; Encouraged pt to attend and participate in group; Maintained a supportive environment; Provided encouragement regarding performance of ADLs; Maintained [id number] safety checks. Response: Patient up prior to breakfast observed walking in the halls. She is up for all meals and snacks. She attended group today. She is compliant with oral medications. She continues to nap on and off during the day. Patient denies SI/HI. She reports, "feeling much better." She further states, "the medications are helping with my voices and nightmares." Plan: Pt. requires medication adjustments and a safe and supportive environment.
[2022-07-21 19:00] VITALS: BP 133/76
[2022-07-21] MEDS: traZODone 50mg tablet PO PRN (20:26)
--- NOTE | 2022-07-21 21:39 | NUR ---
Nursing Progress Note: Problem: Pt. was admitted to the unit on a gurney via EMS transport from [facility]. Pt. is on a 5150 for DTS and GD. Per 5150: Pt. admitted to ongoing derogatory, disturbing auditory hallucinations. Pt. appeared distracted and disorganized. Pt. did not know if she could keep herself safe. Pt. has a history of schizophrenia and depression and was not taking medications. Interventions: Provided 1:1 assessment with therapeutic communication and active listening; Provided medication administration/education/monitoring; Encouraged pt to attend and participate in group; Maintained a supportive environment; Provided encouragement regarding performance of ADLs; Maintained [id number] safety checks. Response: Pt was in her room coloring at change of shift. Pt states she continues to hear voices although they are "quieter" with meds. Pt denies s/i but states she feels "safe" her but worries if she leaves she will begin thinking of suicide again. Pt reports medications have been helpful and feels like her mood is better. Pt spent time watching tv in the group room and coloring. Pt is quiet and socializes with her roommate but mostly keeps to herself. Pt took HS meds, requested prn trazodone for sleep, because she states it has been helpful, then went to bed. Plan: Pt. requires medication adjustments and a safe and supportive environment.
[2022-07-22 08:03] VITALS: BP 124/85
[2022-07-22] MEDS: folic acid 1mg tablet PO SCH (08:26)
[2022-07-22] MEDS: pantoprazole 40mg Tablet.DR PO SCH (08:26)
[2022-07-22] MEDS: multivitamins, therapeutics tablet PO SCH (08:26)
[2022-07-22] MEDS: levetiracetam 250mg tablet PO SCH ×2 (08:26→20:14)
[2022-07-22] MEDS: sertraline 50mg tablet PO SCH (08:27)
[2022-07-22] MEDS: nicotine 14mg patch - 24hr TD SCH (08:33)
[2022-07-22] MEDS: LORazepam 1 MG tablet PO SCH (11:58)
[2022-07-22] MEDS: olanzapine 10mg tablet PO SCH ×2 (11:58→20:14)
[2022-07-22] MEDS: acetaminophen 325mg tablet PO PRN ×2 (12:12→19:09)
--- NOTE | 2022-07-22 15:58 | NUR ---
Nursing Progress Note Problem: Pt. was admitted to the unit on a gurney via EMS transport from [facility]. Pt. is on a 5150 for DTS and GD. Per 5150: Pt. admitted to ongoing derogatory, disturbing auditory hallucinations. Pt. appeared distracted and disorganized. Pt. did not know if she could keep herself safe. Pt. has a history of schizophrenia and depression and was not taking medications. Interventions: Provided 1:1 assessment with therapeutic communication and active listening; Provided medication administration/education/monitoring; Encouraged pt to attend and participate in group; Maintained a supportive environment; Provided encouragement regarding performance of ADLs; Maintained [id number] safety checks. Response: Received Pt in bed sleeping w/o distress. She woke and was cooperative with vitals and AM meds. Pt ate meals and snacks well. Pt cooperative with assessments. Patient denies SI/HI. Pt received Tylenol for BOSWELL with good effect. Pt attended groups with good participation. Pt spent time doing art work in bed. Overall pleasant, polite and cooperative. Pt presents as mildly anxious and depressed. AH's were mild and not as disturbing today. Plan: Pt. requires medication adjustments and a safe and supportive environment.
[2022-07-22 20:00] VITALS: BP 136/83
[2022-07-22] MEDS: traZODone 50mg tablet PO PRN (20:14)
--- NOTE | 2022-07-22 23:49 | NUR ---
Nursing Progress Note: Nieves Problem: Pt. was admitted to the unit on a gurney via EMS transport from [facility]. Pt. is on a 5150 for DTS and GD. Per 5150: Pt. admitted to ongoing derogatory, disturbing auditory hallucinations. Pt. appeared distracted and disorganized. Pt. did not know if she could keep herself safe. Pt. has a history of schizophrenia and depression and was not taking medications. Interventions: Provided 1:1 assessment with therapeutic communication and active listening; Provided medication administration/education/monitoring; Encouraged pt to attend and participate in group; Maintained a supportive environment; Provided encouragement regarding performance of ADLs; Maintained [id number] safety checks. Response: Received Pt in bed resting. Pt calm, polite and cooperative. She denies SI/HI but has some mild depression. Pt c/o of some mild BOSWELL and requested PRN Tylenol, medication given with good effect. Pt declined snack and took all HS medications, isolated to her room most of the evening then went to bed. Plan: Pt. requires medication adjustments and a safe and supportive environment.
[2022-07-23 08:00] VITALS: BP 107/75
[2022-07-23] MEDS: multivitamins, therapeutics tablet PO SCH (09:27)
[2022-07-23] MEDS: sertraline 50mg tablet PO SCH (09:27)
[2022-07-23] MEDS: pantoprazole 40mg Tablet.DR PO SCH (09:27)
[2022-07-23] MEDS: levetiracetam 250mg tablet PO SCH ×2 (09:28→20:26)
[2022-07-23] MEDS: folic acid 1mg tablet PO SCH (09:28)
[2022-07-23] MEDS: nicotine 14mg patch - 24hr TD SCH (09:29)
--- NOTE | 2022-07-23 09:51 | NUR ---
Reassessment: Pt continues eating well, documented with mostly 100% PO intake on regular diet meeting estimated nutrient needs. LBM 07/21. PRN bowel care available. No nutrition intervention implemented at this time. Will continue to follow. Recommendations: 1) Continue regular diet 2) Bowel care PRN 3) Weekly scaled weights Addendum: 07/23/22 at [address] Amended: Links added.
--- NOTE | 2022-07-23 11:32 | NUR ---
Met with Ct in her room. She was coloring, pleasant and smiling. She reported she is still hearing negative voices ("I shouldn't be here, I don't deserve to be alive"). She reported she doesn't hear them when she is talking to someone else. She noted the voices aren't as bad as they were when she first came in. She is hopeful they will go away. MELISSA Tavarez
[2022-07-23] MEDS: olanzapine 10mg tablet PO SCH ×2 (11:39→20:27)
[2022-07-23] MEDS: LORazepam 1 MG tablet PO SCH (11:39)
--- NOTE | 2022-07-23 17:29 | NUR ---
Nursing Progress Note Problem: Pt. was admitted to the unit on a gurney via EMS transport from [facility]. Pt. is on a 5150 for DTS and GD. Per 5150: Pt. admitted to ongoing derogatory, disturbing auditory hallucinations. Pt. appeared distracted and disorganized. Pt. did not know if she could keep herself safe. Pt. has a history of schizophrenia and depression and was not taking medications. Interventions: Provided 1:1 assessment with therapeutic communication and active listening; Provided medication administration/education/monitoring; Encouraged pt to attend and participate in group; Maintained a supportive environment; Provided encouragement regarding performance of ADLs; Maintained Q 15minute safety checks. Response: Patient received sleeping in bed at shift change. She awoke and endorsed to this ticket writer that she woke up a little depressed about being in here. Patient is pleasant, friendly, and cooperative with care. She was receptive to all medication and 1:1 assessment. Patient observed coloring pictures throughout the day. She endorsed that she is trying to stay busy. She joined with peers on the patio later in the day. Patient denies SI/HI and A/VH. She was pleasant throughout the day and cooperative with care. Plan: Pt. requires medication adjustments and a safe and supportive environment.
[2022-07-23] MEDS: LORazepam 1 MG tablet PO PRN (18:48)
[2022-07-23 19:00] VITALS: BP 128/79
[2022-07-23] MEDS: acetaminophen 325mg tablet PO PRN (19:22)
[2022-07-23] MEDS: traZODone 50mg tablet PO PRN ×2 (20:26→21:47)
--- NOTE | 2022-07-24 00:01 | NUR ---
Nursing Progress Note Nieves Problem: Pt. was admitted to the unit on a gurney via EMS transport from [facility]. Pt. is on a 5150 for DTS and GD. Per 5150: Pt. admitted to ongoing derogatory, disturbing auditory hallucinations. Pt. appeared distracted and disorganized. Pt. did not know if she could keep herself safe. Pt. has a history of schizophrenia and depression and was not taking medications. Interventions: Provided 1:1 assessment with therapeutic communication and active listening; Provided medication administration/education/monitoring; Encouraged pt to attend and participate in group; Maintained a supportive environment; Provided encouragement regarding performance of ADLs; Maintained Q 15minute safety checks. Response: Patient received sitting up in her bed working on a crossword puzzle. She is pleasant and cooperative. She states she is feeling anxious (7/10) pt given 1MG Ativan with good effect. She states she is trying to keep busy by coloring and drawing. Pt requested PRN Tylenol for mild BOSWELL. Pt took all HS medications including trazadone for sleep with no issues. Repeat trazadone given. Pt currently sleeping with no other needs/wants. Plan: Pt. requires medication adjustments and a safe and supportive environment.
[2022-07-24 08:00] VITALS: BP 131/81
[2022-07-24] MEDS: multivitamins, therapeutics tablet PO SCH (08:20)
[2022-07-24] MEDS: levetiracetam 250mg tablet PO SCH ×2 (08:20→20:25)
[2022-07-24] MEDS: folic acid 1mg tablet PO SCH (08:20)
[2022-07-24] MEDS: pantoprazole 40mg Tablet.DR PO SCH (08:20)
[2022-07-24] MEDS: sertraline 50mg tablet PO SCH (08:20)
[2022-07-24] MEDS: nicotine 14mg patch - 24hr TD SCH (08:27)
[2022-07-24] MEDS: olanzapine 10mg tablet PO SCH ×2 (12:10→20:26)
[2022-07-24] MEDS: LORazepam 1 MG tablet PO SCH (12:10)
--- NOTE | 2022-07-24 15:13 | NUR ---
Nursing Progress Note: Problem: Pt. was admitted to the unit on a gurney via EMS transport from [facility]. Pt. is on a 5150 for DTS and GD. Per 5150: Pt. admitted to ongoing derogatory, disturbing auditory hallucinations. Pt. appeared distracted and disorganized. Pt. did not know if she could keep herself safe. Pt. has a history of schizophrenia and depression and was not taking medications. Interventions: 1:1 assessment, therapeutic conversation, active listening, ensured contract for safety, medication administration/education/monitoring, provided distraction, direction, positive reinforcement, and Q15 minute safety checks. Response: Pt was up for breakfast and cooperative with medications. Pt reports that she is "okay." Pt continues to hear derogatory AH. Sometimes the voices are those of family members. The voices cause her to feel depressed although pt has been doing a good job of distracting herself from them by coloring and by attending groups. Pt reports that the voices say that "they wish I was ." Pt denies SI. Plan: Pt continues to required medication adjustments and management in a safe and supportive environment until stable.
[2022-07-24] MEDS: acetaminophen 325mg tablet PO PRN (15:46)
[2022-07-24 20:06] VITALS: BP 117/76
[2022-07-24] MEDS: traZODone 50mg tablet PO PRN (20:25)
--- NOTE | 2022-07-24 23:19 | NUR ---
Nursing Progress Note: Nieves Problem: Pt. was admitted to the unit on a gurney via EMS transport from [facility]. Pt. is on a 5150 for DTS and GD. Per 5150: Pt. admitted to ongoing derogatory, disturbing auditory hallucinations. Pt. appeared distracted and disorganized. Pt. did not know if she could keep herself safe. Pt. has a history of schizophrenia and depression and was not taking medications. Interventions: 1:1 assessment, therapeutic conversation, active listening, ensured contract for safety, medication administration/education/monitoring, provided distraction, direction, positive reinforcement, and Q15 minute safety checks. Response: Pt sitting up in her bed coloring and working on crosswords puzzles. Pt is pleasant and cooperative and states she is doing well. Describes her anxiety at a 5/10 but declines PRN medication. She up for snack time and observed watching TV in community room. Pt took all HS medications including PRN trazadone. Pt is currently sleeping and doesnt appear to be having difficulty. Plan: Pt continues to required medication adjustments and management in a safe and supportive environment until stable.
[2022-07-25 08:00] VITALS: BP 136/92
[2022-07-25] MEDS: levetiracetam 250mg tablet PO SCH ×2 (08:18→20:57)
[2022-07-25] MEDS: sertraline 50mg tablet PO SCH (08:18)
[2022-07-25] MEDS: folic acid 1mg tablet PO SCH (08:18)
[2022-07-25] MEDS: multivitamins, therapeutics tablet PO SCH (08:18)
[2022-07-25] MEDS: pantoprazole 40mg Tablet.DR PO SCH (08:18)
[2022-07-25] MEDS: nicotine 14mg patch - 24hr TD SCH (08:20)
[2022-07-25] MEDS: LORazepam 1 MG tablet PO SCH (12:22)
[2022-07-25] MEDS: olanzapine 10mg tablet PO SCH ×2 (12:22→20:58)
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
[2022-07-25 19:43] VITALS: BP 129/53
[2022-07-25] MEDS: traZODone 50mg tablet PO PRN (21:02)
--- NOTE | 2022-07-26 02:54 | NUR ---
NURSING PROGRESS NOTE Problem: Pt was transport from [facility] on a 5150 for DTS and GD. Per 5150: Pt. admitted to ongoing derogatory, disturbing auditory hallucinations. Pt. appeared distracted and disorganized. Pt. did not know if she could keep herself safe. Pt. has a history of schizophrenia and depression and was not taking medications. Interventions: One to one with patient with therapeutic conversation, active listening, ensured contract for safety, administered medication as ordered with no adverse side effects, provided distraction, positive reinforcement, and Q15 minute safety checks. Response: Received patient sitting in group room at shift change. Pt was social with female peers. Pt reports better mood and decreased AH. Patient remained in group room where she took her night meds. Pt retired to her room shortly after snack. Trazadone PRN was administered with effect. Pt denies SI/HI/VH. No delusional statements made this shift. Plan: Patient continues to express on again off again auditory hallucinations, however improving mood. Pt continues to require medication adjustments and management in a safe and supportive environment until stable.
[2022-07-26 07:35] VITALS: BP 110/68
[2022-07-26] MEDS: nicotine 14mg patch - 24hr TD SCH (08:15)
[2022-07-26] MEDS: sertraline 50mg tablet PO SCH (08:15)
[2022-07-26] MEDS: levetiracetam 250mg tablet PO SCH ×2 (08:15→20:30)
[2022-07-26] MEDS: multivitamins, therapeutics tablet PO SCH (08:15)
[2022-07-26] MEDS: pantoprazole 40mg Tablet.DR PO SCH (08:15)
[2022-07-26] MEDS: folic acid 1mg tablet PO SCH (08:15)
[2022-07-26] MEDS: olanzapine 10mg tablet PO SCH ×2 (12:39→20:29)
[2022-07-26] MEDS: LORazepam 1 MG tablet PO SCH (12:39)
--- NOTE | 2022-07-26 16:46 | NUR ---
Nursing Progress Note: Problem: Pt. was admitted to the unit on a gurney via EMS transport from [facility]. Pt. is on a 5150 for DTS and GD. Per 5150: Pt. admitted to ongoing derogatory, disturbing auditory hallucinations. Pt. appeared distracted and disorganized. Pt. did not know if she could keep herself safe. Pt. has a history of schizophrenia and depression and was not taking medications. Interventions: Provide medication administration & medication management; Maintained a safe & supportive environment; Clear & simple instructions; Direction & encouragement regarding performance of ADLs; monitored behaviors & maintained clear boundaries; Patient physical assessment & 1:1 patient interview; Therapeutic conversation & active listening; Patient education & monitoring. Response: Received patient while she was just waking up and went to get coffee at 0700. Patient was then administered her 0800 medications then sat down in the Community Room to color pictures or complete Word Search Puzzles. Patient reports From time to time I hear some voices telling me to do something, but those are getting less and less. Patient denies SI & VH. Patient talks frequently with her roommate and appears to enjoy her company. Patient attended the Group Meeting after participating in snacks at 1100, then returned to her room resting before lunch. Patient overall appears much improved in mentation and organization and is calmer than last week. Plan: Pt. requires medication adjustments and a safe and supportive environment.
[2022-07-26] MEDS: acetaminophen 325mg tablet PO PRN (17:16)
[2022-07-26 20:09] VITALS: BP 133/84
[2022-07-26] MEDS: traZODone 50mg tablet PO PRN (20:29)
--- NOTE | 2022-07-26 22:37 | NUR ---
Nursing Progress Note: Problem: Pt. was admitted to the unit on a gurney via EMS transport from [facility]. Pt. is on a 5150 for DTS and GD. Per 5150: Pt. admitted to ongoing derogatory, disturbing auditory hallucinations. Pt. appeared distracted and disorganized. Pt. did not know if she could keep herself safe. Pt. has a history of schizophrenia and depression and was not taking medications. Interventions: Provide medication administration & medication management; Maintained a safe & supportive environment; Clear & simple instructions; Direction & encouragement regarding performance of ADLs; monitored behaviors & maintained clear boundaries; Patient physical assessment & 1:1 patient interview; Therapeutic conversation & active listening; Patient education & monitoring. Response: Pt was in her room at change of shift. She is smiling and pleasant. Pt continues to endorse AH but reports voices are not as bad as they were but she can still hear them. Pt socializes w/peers during the evening, spends time watching tv and ate snacks with the group. Pt went to bed after HS meds. Pt took prn trazodone for sleep. Plan: Pt. requires medication adjustments and a safe and supportive environment.
[2022-07-27] MEDS: pantoprazole 40mg Tablet.DR PO SCH (07:31)
[2022-07-27] MEDS: multivitamins, therapeutics tablet PO SCH (07:31)
[2022-07-27] MEDS: sertraline 50mg tablet PO SCH (07:31)
[2022-07-27] MEDS: folic acid 1mg tablet PO SCH (07:31)
[2022-07-27] MEDS: levetiracetam 250mg tablet PO SCH ×2 (07:31→20:03)
[2022-07-27] MEDS: nicotine 14mg patch - 24hr TD SCH (07:31)
[2022-07-27 07:44] VITALS: BP 139/78
[2022-07-27] MEDS: LORazepam 1 MG tablet PO SCH (12:07)
[2022-07-27] MEDS: olanzapine 10mg tablet PO SCH ×2 (12:07→20:03)
--- NOTE | 2022-07-27 12:39 | NUR ---
Left message with [facility] Lia[facility] (ph# [phone]) requesting a call back to coordinate discharge planning. MELISSA Tavarez
[2022-07-27] MEDS: LORazepam 1 MG tablet PO PRN (15:28)
--- NOTE | 2022-07-27 16:33 | NUR ---
Nursing Progress Note: Nieves Problem: Pt. admitted from [facility]. Pt. is on a 5150 for DTS and GD. Per 5150: Pt. admitted to ongoing derogatory, disturbing auditory hallucinations. Pt. appeared distracted and disorganized. Pt. did not know if she could keep herself safe. Pt. has a history of schizophrenia and depression and was not taking medications. Currently on VOL. Interventions: Medication administration, 1:1 MH assessment, maintained a safe and supportive environment, provided clear and simple instructions, provided encouragement regarding performance of ADLs, monitored behaviors and maintained clear boundaries, maintained Q15 minute safety checks. Response: Pt. received asleep and awoke before breakfast, and took her medication without hesitation. She denies SI, HI, VH, and endorses AH stating the voices are better, not as frequent with a plan to DC home to her trailer. She spent time in her room working on [employer] pages and socialized with a few female cohorts in the tv room. She attended group today and ate all meals in the community room. Toward late afternoon pt. approached procedure writer c/o hearing more voices and I feel anxious PRN Ativan administered with good results. She was observed interacting appropriately with cohorts. She is pleasant and cooperative. Has good hygiene, hair in a pony, and wears street clothes. Plan: Pt. requires medication adjustments and a safe and supportive environment.
[2022-07-27 19:23] VITALS: BP 108/62
[2022-07-27] MEDS: traZODone 50mg tablet PO PRN ×2 (20:03→21:07)
--- NOTE | 2022-07-27 20:53 | NUR ---
Nursing Progress Note: Nieves Problem: Pt. admitted from [facility]. Pt. is on a 5150 for DTS and GD. Per 5150: Pt. admitted to ongoing derogatory, disturbing auditory hallucinations. Pt. appeared distracted and disorganized. Pt. did not know if she could keep herself safe. Pt. has a history of schizophrenia and depression and was not taking medications. Currently on VOL. Interventions: Medication administration, 1:1 MH assessment, maintained a safe and supportive environment, provided clear and simple instructions, provided encouragement regarding performance of ADLs, monitored behaviors and maintained clear boundaries, maintained Q15 minute safety checks. Response: Pt was in the hallway at change of shift, she is smiling and pleasant and reports having a good day. Pt reports AH has improved no longer hearing derogatory comments. Pt had snack and socialized with peers. Pt took HS meds, zyprexa was reduced tonight and she is aware. Pt reports she has been sleeping well. Pt went to bed shortly after taking HS meds. Nicotine patch was removed Plan: Pt. requires medication adjustments and a safe and supportive environment.
[2022-07-28 07:00] VITALS: BP 102/60
[2022-07-28] MEDS: multivitamins, therapeutics tablet PO SCH (07:50)
[2022-07-28] MEDS: levetiracetam 250mg tablet PO SCH ×2 (07:50→20:46)
[2022-07-28] MEDS: sertraline 50mg tablet PO SCH (07:50)
[2022-07-28] MEDS: pantoprazole 40mg Tablet.DR PO SCH (07:50)
[2022-07-28] MEDS: folic acid 1mg tablet PO SCH (07:50)
[2022-07-28] MEDS: nicotine 14mg patch - 24hr TD SCH (07:51)
[2022-07-28] MEDS: olanzapine 10mg tablet PO SCH ×2 (11:08→20:46)
[2022-07-28] MEDS: LORazepam 1 MG tablet PO SCH (11:08)
[2022-07-28] MEDS: magnesium hydroxide 30ml (MOM) UD suspension PO PRN (11:53)
--- NOTE | 2022-07-28 17:05 | NUR ---
Nursing Progress Note: Nieves Problem: Pt. admitted from [facility]. Pt. is on a 5150 for DTS and GD. Per 5150: Pt. admitted to ongoing derogatory, disturbing auditory hallucinations. Pt. appeared distracted and disorganized. Pt. did not know if she could keep herself safe. Pt. has a history of schizophrenia and depression and was not taking medications. Currently on VOL. Interventions: Medication administration, 1:1 MH assessment, maintained a safe and supportive environment, provided clear and simple instructions, provided encouragement regarding performance of ADLs, monitored behaviors and maintained clear boundaries, maintained Q15 minute safety checks. Response: Pt. received asleep and awoke for breakfast, she took her medication without hesitation. And continues to deny SI, HI, VH, and endorses AH stating I still hear voices, but Im better her DC plans remains to return home. Pt. attended group today and spent long periods of time coloring in her room. She interact at times with female cohorts socializing and watching tv. Pt. ate all meals in the main dining area and has a good appetite. She is cooperative, laughs and smiles often. Her hygiene is good, hair is brushed, and wears street clothes. Pt. reported LBM was hard and requested PRN MOM; med given with results pending. Plan: Pt. requires medication adjustments and a safe and supportive environment.
[2022-07-28 20:00] VITALS: BP 113/82
[2022-07-28] MEDS: acetaminophen 325mg tablet PO PRN (20:56)
[2022-07-28] MEDS: traZODone 50mg tablet PO PRN (20:56)
--- NOTE | 2022-07-29 03:15 | NUR ---
Nursing Progress Note: Nieves Problem: Pt. admitted from [facility]. Pt. is on a 5150 for DTS and GD. Per 5150: Pt. admitted to ongoing derogatory, disturbing auditory hallucinations. Pt. appeared distracted and disorganized. Pt. did not know if she could keep herself safe. Pt. has a history of schizophrenia and depression and was not taking medications. Currently on VOL. Interventions: Medication administration, 1:1 MH assessment, maintained a safe and supportive environment, provided clear and simple instructions, provided encouragement regarding performance of ADLs, monitored behaviors and maintained clear boundaries, maintained Q15 minute safety checks. Response: Received Pt in community room at change of shift. Pt cooperative with vitals and assessments. She is pleasant and polite with staff and others. Pt watched TV with others and socialized well. She reports sleeping well with Trazadone and took HS meds and PRN Trazadone as well. Pt went to bed and remains there quietly. Plan: Pt. requires medication adjustments and a safe and supportive environment.
[2022-07-29 07:21] VITALS: BP 128/81
[2022-07-29] MEDS: multivitamins, therapeutics tablet PO SCH (07:31)
[2022-07-29] MEDS: nicotine 14mg patch - 24hr TD SCH (07:31)
[2022-07-29] MEDS: folic acid 1mg tablet PO SCH (07:31)
[2022-07-29] MEDS: levetiracetam 250mg tablet PO SCH ×2 (07:31→20:28)
[2022-07-29] MEDS: pantoprazole 40mg Tablet.DR PO SCH (07:31)
[2022-07-29] MEDS: sertraline 50mg tablet PO SCH (07:31)
[2022-07-29 08:13] LABS: ALANINE AMINOTRANSFERASE 63 U/L (12-78); ALBUMIN 3.9 G/DL (3.4-5.0); ALBUMIN/GLOBULIN RATIO 1.1 (1.1-1.5); ALKALINE PHOSPHATASE 100 IU/L (46-116); ANION GAP 9 (8-16); ASPARTATE AMINO TRANSFERASE 32 U/L (10-37); BILIRUBIN,TOTAL 0.2 MG/DL (0.1-1.0); BLOOD UREA NITROGEN 23 MG/DL (7-18); BUN/CREATININE RATIO 31.9 (6.6-38.0); CALCIUM 9.3 MG/DL (8.5-10.1); CHLORIDE 106 MMOL/L (99-107); CREATININE 0.72 MG/DL (0.40-0.90); GLUCOSE 140 MG/DL (70-104); MAGNESIUM 2.1 MG/DL (1.5-2.4); PHOSPHORUS 4.6 MG/DL (2.3-4.5); POTASSIUM 4.3 MMOL/L (3.5-5.1); SODIUM 141 MMOL/L (135-145); TOTAL CARBON DIOXIDE 25.6 MMOL/L (24-32); TOTAL PROTEIN 7.5 G/DL (6.4-8.2); eGFR 82 ML/MIN
[2022-07-29] MEDS: LORazepam 1 MG tablet PO SCH (11:23)
[2022-07-29] MEDS: olanzapine 10mg tablet PO SCH ×2 (11:23→20:28)
--- NOTE | 2022-07-29 16:30 | NUR ---
Nursing Progress Note: Nieves Problem: Pt. admitted from [facility]. Pt. is on a 5150 for DTS and GD. Per 5150: Pt. ongoing derogatory, disturbing auditory hallucinations. Pt. appeared distracted and disorganized. Pt. did not know if she could keep herself safe. Pt. has a history of schizophrenia and depression and was not taking medications. Currently on VOL. Interventions: Medication administration, 1:1 MH assessment, maintained a safe and supportive environment, provided clear and simple instructions, provided encouragement regarding performance of ADLs, monitored behaviors and maintained clear boundaries, maintained Q15 minute safety checks. Response: Pt. received asleep and awoke for breakfast. She took her medication without hesitation, and denies any further s/sx of constipation. She denies SI, HI, VH, and endorses AH stating the voices are quiet, but still there DC plans remains to return home to [place]. Pt. spent time walking around the unit, and watching tv briefly in the community room, she was observed sitting with female cohort groups and smiling. Pt. ate all meals in the main dining area and has a good appetite. Her hygiene is good, hair is brushed, and wears street clothes. Pt. reported LBM was hard and requested PRN MOM; med given with results pending. Plan: Pt. requires medication adjustments and a safe and supportive environment.
[2022-07-29 19:00] VITALS: BP 143/85
[2022-07-29] MEDS: traZODone 50mg tablet PO PRN (20:28)
--- NOTE | 2022-07-30 00:03 | NUR ---
Nursing Progress Note: Nieves Problem: Pt. admitted from [facility]. Pt. is on a 5150 for DTS and GD. Per 5150: Pt. ongoing derogatory, disturbing auditory hallucinations. Pt. appeared distracted and disorganized. Pt. did not know if she could keep herself safe. Pt. has a history of schizophrenia and depression and was not taking medications. Currently on VOL. Interventions: Medication administration, 1:1 MH assessment, maintained a safe and supportive environment, provided clear and simple instructions, provided encouragement regarding performance of ADLs, monitored behaviors and maintained clear boundaries, maintained Q15 minute safety checks. Response: Pt. received sitting in her bed with a crossword puzzle. Pt pleasant and polite and states she is doing much better than when she first arrived on this unit. She feels her medications are working well for her. She denies SI and endorses AH stating that the voices are very quiet. She plans to return home to [place]. She took all HS medications and went to bed. Plan: Pt. requires medication adjustments and a safe and supportive environment.
[2022-07-30 07:25] VITALS: BP 103/74
[2022-07-30] MEDS: folic acid 1mg tablet PO SCH (07:34)
[2022-07-30] MEDS: pantoprazole 40mg Tablet.DR PO SCH (07:34)
[2022-07-30] MEDS: levetiracetam 250mg tablet PO SCH ×2 (07:34→20:12)
[2022-07-30] MEDS: sertraline 50mg tablet PO SCH (07:35)
[2022-07-30] MEDS: multivitamins, therapeutics tablet PO SCH (07:35)
[2022-07-30] MEDS: nicotine 14mg patch - 24hr TD SCH (08:02)
[2022-07-30 08:24] LABS: BASOPHILS # (AUTO) 0.1 X10'3 (0-0.2); EOSINOPHILS # (AUTO) 0.3 X10'3 (0-0.9); EOSINOPHILS % (AUTO) 4.4 % (0-6); HEMATOCRIT 40.2 % (35.0-45.0); HEMOGLOBIN 13.8 g/dl (12.0-16.0); LYMPHOCYTES # (AUTO) 1.7 X10'3 (1.1-4.8); LYMPHOCYTES % (AUTO) 27.7 % (21-51); MEAN CORPUSCULAR HEMOGLOBIN 32.7 PG (27.0-31.0); MEAN CORPUSCULAR HGB CONC 34.4 g/dL (33.0-36.5); MEAN CORPUSCULAR VOLUME 95.1 FL (78-98); MONOCYTES # (AUTO) 0.7 X10'3 (0-0.9); MONOCYTES % (AUTO) 10.5 % (2-12); NEUTROPHILS # (AUTO) 3.5 X10'3 (1.8-7.7); NEUTROPHILS % (AUTO) 56.4 % (42-75); PLATELET COUNT 215 X10'3 (140-440); RED BLOOD COUNT 4.22 X10'6 (4.20-5.60); RED CELL DISTRIBUTION WIDTH 15.5 % (11.5-14.5); WHITE BLOOD COUNT 6.3 X10'3 (4.5-11.0)
[2022-07-30] MEDS: LORazepam 1 MG tablet PO SCH (11:13)
[2022-07-30] MEDS: OLANZAPINE 5 MG TABLET PO SCH (11:13)
--- NOTE | 2022-07-30 14:57 | NUR ---
Nursing Progress Note: Problem: Pt. was admitted to the unit on a gurney via EMS transport from [facility]. Pt. is on a 5150 for DTS and GD. Per 5150: Pt. admitted to ongoing derogatory, disturbing auditory hallucinations. Pt. appeared distracted and disorganized. Pt. did not know if she could keep herself safe. Pt. has a history of schizophrenia and depression and was not taking medications. Interventions: 1:1 assessment, therapeutic conversation, active listening, ensured contract for safety, medication administration/education/monitoring, provided distraction, direction, positive reinforcement, and Q15 minute safety checks. Response: Pt was up for breakfast and cooperative with medications. Pt reported that the voices were "quieter" today. Pt denied SI/HI/VH. Pt spends time coloring in her room. Pt attends groups. Plan: Pt's voices have gotten quieter. Pt in need of a safe and therapeutic environment until a viable discharge plan can be arranged.
[2022-07-30 19:00] VITALS: BP 126/75
[2022-07-30] MEDS: olanzapine 10mg tablet PO SCH (20:12)
[2022-07-30] MEDS: traZODone 50mg tablet PO PRN (20:12)
[2022-07-30] MEDS: acetaminophen 325mg tablet PO PRN (21:40)
--- NOTE | 2022-07-31 00:48 | NUR ---
Nursing Progress Note: Nieves Problem: Pt. was admitted to the unit on a gurney via EMS transport from [facility]. Pt. is on a 5150 for DTS and GD. Per 5150: Pt. admitted to ongoing derogatory, disturbing auditory hallucinations. Pt. appeared distracted and disorganized. Pt. did not know if she could keep herself safe. Pt. has a history of schizophrenia and depression and was not taking medications. Interventions: 1:1 assessment, therapeutic conversation, active listening, ensured contract for safety, medication administration/education/monitoring, provided distraction, direction, positive reinforcement, and Q15 minute safety checks. Response: Pt was sitting in her room coloring, reports that her voices are quiet today. Pt denies MH symptoms, participated in snacks and took all HS medications. Pt c/o BOSWELL 5/10, PRN Tylenol given with good effect. Plan: Pt's voices have gotten quieter. Pt in need of a safe and therapeutic environment until a viable discharge plan can be arranged.
[2022-07-31] MEDS: nicotine 14mg patch - 24hr TD SCH (07:58)
[2022-07-31] MEDS: pantoprazole 40mg Tablet.DR PO SCH (07:58)
[2022-07-31] MEDS: levetiracetam 250mg tablet PO SCH ×2 (07:58→20:27)
[2022-07-31] MEDS: folic acid 1mg tablet PO SCH (07:58)
[2022-07-31] MEDS: multivitamins, therapeutics tablet PO SCH (07:58)
[2022-07-31] MEDS: sertraline 50mg tablet PO SCH (07:58)
[2022-07-31 08:00] VITALS: BP 127/72
[2022-07-31] MEDS: OLANZAPINE 5 MG TABLET PO SCH (12:21)
[2022-07-31] MEDS: LORazepam 1 MG tablet PO SCH (12:21)
--- NOTE | 2022-07-31 17:10 | NUR ---
PROGRESS NOTE Pt up for breakfast, took all AM meds with no issues. Pt very cooperative and pleasant throughout whole day. No issues or complaints noted.
[2022-07-31 20:00] VITALS: BP 105/84
[2022-07-31] MEDS: olanzapine 10mg tablet PO SCH (20:27)
[2022-07-31] MEDS: traZODone 50mg tablet PO PRN ×2 (20:27→21:18)
--- NOTE | 2022-08-01 02:34 | NUR ---
Nursing Progress Note Problem: Pt. was admitted to the unit on a gurney via EMS transport from [facility]. Pt. is on a 5150 for DTS and GD. Per 5150: Pt. admitted to ongoing derogatory, disturbing auditory hallucinations. Pt. appeared distracted and disorganized. Pt. did not know if she could keep herself safe. Pt. has a history of schizophrenia and depression and was not taking medications. Interventions: Provided 1:1 assessment with therapeutic communication and active listening; Provided medication administration/education/monitoring; Encouraged pt to attend and participate in group; Maintained a supportive environment; Provided encouragement regarding performance of ADLs; Maintained Q 15minute safety checks. Response: Patient was observed in her room the community room following shift change. The patient is social with her peers. Patient does complain of some anxiety. Patient denies S/I or H/I. When asked how she felt the patient replied "not bad." The patient admits to audible hallucinations but states she can't recall what the voices are saying. This patient is friendly and medication compliant. The patient denies visual hallucinations. Plan: Pt. requires medication adjustments and a safe and supportive environment.
[2022-08-01 07:17] VITALS: BP 138/76
[2022-08-01] MEDS: folic acid 1mg tablet PO SCH (07:35)
[2022-08-01] MEDS: multivitamins, therapeutics tablet PO SCH (07:35)
[2022-08-01] MEDS: nicotine 14mg patch - 24hr TD SCH (07:35)
[2022-08-01] MEDS: sertraline 50mg tablet PO SCH (07:36)
[2022-08-01] MEDS: pantoprazole 40mg Tablet.DR PO SCH (07:36)
[2022-08-01] MEDS: levetiracetam 250mg tablet PO SCH ×2 (07:36→20:26)
[2022-08-01] MEDS: OLANZAPINE 5 MG TABLET PO SCH (13:10)
[2022-08-01] MEDS: LORazepam 1 MG tablet PO SCH (13:10)
[2022-08-01] MEDS: magnesium hydroxide 30ml (MOM) UD suspension PO PRN (13:56)
--- NOTE | 2022-08-01 17:08 | NUR ---
Nursing Progress Note: Problem: Pt. was admitted to the unit on a gurney via EMS transport from [facility]. Pt. is on a 5150 for DTS and GD. Per 5150: Pt. admitted to ongoing derogatory, disturbing auditory hallucinations. Pt. appeared distracted and disorganized. Pt. did not know if she could keep herself safe. Pt. has a history of schizophrenia and depression and was not taking medications. Interventions: Provide medication administration & medication management; Maintained a safe & supportive environment; Clear & simple instructions; Direction & encouragement regarding performance of ADLs; monitored behaviors & maintained clear boundaries; Patient physical assessment & 1:1 patient interview; Therapeutic conversation & active listening; Patient education & monitoring. Response: Received patient when she woke up at 0645 and requested coffee at 0700. Patient reports that she is doing better but informed I know I want to see my cat but I dont think I am quite ready to leave. Patient reports feeling good then experiencing The voices that make me feel very bad. Patient is smiling and cooperative throughout the daytime. Patient spent the day doing crossword or Word Find puzzles, and also coloring at times. Patient and her roommate both report that they are compatible with each other and that makes for a better day. Both are smiling and cooperative with staff members at all times. Patient reported AH, but denies SI/VH. Patient reported she had a bowel movement yesterday, but still feel like I need to go. Patient requested MOM and it was given to her at 1400, and patient had a large BM. Patients only request for prn medications was for MOM this shift. Plan: Pt. requires medication adjustments and a safe and supportive environment.
[2022-08-01 20:00] VITALS: BP 119/83
[2022-08-01] MEDS: traZODone 50mg tablet PO PRN (20:26)
[2022-08-01] MEDS: olanzapine 10mg tablet PO SCH (20:26)
--- NOTE | 2022-08-02 01:38 | NUR ---
Nursing Progress Note: Problem: Pt. was admitted to the unit on a gurney via EMS transport from [facility]. Pt. is on a 5150 for DTS and GD. Per 5150: Pt. admitted to ongoing derogatory, disturbing auditory hallucinations. Pt. appeared distracted and disorganized. Pt. did not know if she could keep herself safe. Pt. has a history of schizophrenia and depression and was not taking medications. Interventions: Provide medication administration & medication management; Maintained a safe & supportive environment; Clear & simple instructions; Direction & encouragement regarding performance of ADLs; monitored behaviors & maintained clear boundaries; Patient physical assessment & 1:1 patient interview; Therapeutic conversation & active listening; Patient education & monitoring. Response: sitting quietly on bed coloring at change of shift. Pleasant and cooperative. Denies SI/HI/VH states that the voices are more active in the morning but that they've been quieter lately. Appears to enjoy the company of her room mate. Attended evening snack. Compliant with medications.PRN trazodone provided for sleep. Nicotine patch removed. Observed and appears to be sleeping . Plan: Pt. requires medication adjustments and a safe and supportive environment.
[2022-08-02] MEDS: levetiracetam 250mg tablet PO SCH ×2 (07:27→20:56)
[2022-08-02] MEDS: sertraline 50mg tablet PO SCH (07:27)
[2022-08-02] MEDS: folic acid 1mg tablet PO SCH (07:27)
[2022-08-02] MEDS: pantoprazole 40mg Tablet.DR PO SCH (07:27)
[2022-08-02] MEDS: nicotine 14mg patch - 24hr TD SCH (07:27)
[2022-08-02] MEDS: multivitamins, therapeutics tablet PO SCH (07:27)
[2022-08-02 07:51] VITALS: BP 102/71
--- NOTE | 2022-08-02 09:14 | NUR ---
Reassessment: Pt continues eating well, documented with mostly 100% PO intake on regular diet meeting estimated nutrient needs. LBM 08/01, large per EMR. Pt receiving PRN bowel care. No nutrition intervention implemented at this time. Will continue to follow. Recommendations: 1) Continue regular diet 2) Bowel care PRN 3) Weekly scaled weights Addendum: 08/02/22 at [address] Amended: Links added.
[2022-08-02] MEDS: acetaminophen 325mg tablet PO PRN (09:52)
[2022-08-02] MEDS: LORazepam 1 MG tablet PO SCH (12:08)
[2022-08-02] MEDS: OLANZAPINE 5 MG TABLET PO SCH (12:08)
[2022-08-02] MEDS: NICOTINE POLACRILEX 2 MG LOZENGE BC PRN (17:02)
--- NOTE | 2022-08-02 17:12 | NUR ---
Nursing Progress Note: Problem: Pt. was admitted to the unit on a gurney via EMS transport from [facility]. Pt. is on a 5150 for DTS and GD. Per 5150: Pt. admitted to ongoing derogatory, disturbing auditory hallucinations. Pt. appeared distracted and disorganized. Pt. did not know if she could keep herself safe. Pt. has a history of schizophrenia and depression and was not taking medications. Interventions: Provide medication administration & medication management; Maintained a safe & supportive environment; Clear & simple instructions; Direction & encouragement regarding performance of ADLs; monitored behaviors & maintained clear boundaries; Patient physical assessment & 1:1 patient interview; Therapeutic conversation & active listening; Patient education & monitoring. Response: Received patient who was awake at approximately 0710 and was in the Community speaking with peers. Offered the patient coffee and then spoke with her regarding her patient interview. Patient reported that she was hearing voices early this morning which interrupted her sleep and she felt frightened. Patient stated she is experiencing these auditory hallucinations much less than before, and she reports that she is so thankful to Dr. Hassan who has helped her start on the right medication that help reduce the amount of times she experiences these voices. Patient is proud of the improvements that have been made while she is here. Patient fell asleep after snack break at 1100, then was awakened when her noon medications were administered. Patient spent time in the Community Room with peers. Plan: Pt. requires medication adjustments and a safe and supportive environment.
[2022-08-02 19:42] VITALS: BP 105/75
[2022-08-02] MEDS: traZODone 50mg tablet PO PRN ×2 (20:55→21:45)
[2022-08-02] MEDS: olanzapine 10mg tablet PO SCH (20:55)
--- NOTE | 2022-08-03 00:04 | NUR ---
Nursing Progress Note: Problem: Pt. was admitted to the unit on a gurney via EMS transport from [facility]. Pt. is on a 5150 for DTS and GD. Per 5150: Pt. admitted to ongoing derogatory, disturbing auditory hallucinations. Pt. appeared distracted and disorganized. Pt. did not know if she could keep herself safe. Pt. has a history of schizophrenia and depression and was not taking medications. Interventions: Provide medication administration & medication management; Maintained a safe & supportive environment; Clear & simple instructions; Direction & encouragement regarding performance of ADLs; monitored behaviors & maintained clear boundaries; Patient physical assessment & 1:1 patient interview; Therapeutic conversation & active listening; Patient education & monitoring. Response: Pt up in group room coloring and interacting with peers at start of shift. 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 She denies A/V/H and SI. She says she is doing "great". Bright affect. Pleasant and cooperative with care took all HS meds. PRN Trazodone x2 for sleep. Plan: Pt. requires medication adjustments and a safe and supportive environment.
[2022-08-03 07:48] VITALS: BP 115/84
[2022-08-03] MEDS: levetiracetam 250mg tablet PO SCH ×2 (07:59→20:03)
[2022-08-03] MEDS: multivitamins, therapeutics tablet PO SCH (07:59)
[2022-08-03] MEDS: folic acid 1mg tablet PO SCH (07:59)
[2022-08-03] MEDS: pantoprazole 40mg Tablet.DR PO SCH (07:59)
[2022-08-03] MEDS: sertraline 50mg tablet PO SCH (08:00)
[2022-08-03] MEDS: nicotine 14mg patch - 24hr TD SCH (08:00)
[2022-08-03] MEDS: LORazepam 1 MG tablet PO SCH (12:48)
[2022-08-03] MEDS: OLANZAPINE 5 MG TABLET PO SCH (12:48)
--- NOTE | 2022-08-03 17:09 | NUR ---
Nursing Progress Note: Problem: Pt. was admitted to the unit on a gurney via EMS transport from [facility]. Pt. is on a 5150 for DTS and GD. Per 5150: Pt. admitted to ongoing derogatory, disturbing auditory hallucinations. Pt. appeared distracted and disorganized. Pt. did not know if she could keep herself safe. Pt. has a history of schizophrenia and depression and was not taking medications. Interventions: Provide medication administration & medication management; Maintained a safe & supportive environment; Clear & simple instructions; Direction & encouragement regarding performance of ADLs; monitored behaviors & maintained clear boundaries; Patient physical assessment & 1:1 patient interview; Therapeutic conversation & active listening; Patient education & monitoring. Response: Received pt awake at change of shift. 1:1 done at bedside and medications administered without issues. Pt attended both meals and group. Pt denies VH as well as S/HI. She endorses AH but states they have lessened overtime and she is not hearing them as much. Pt kept to herself the majority of the shift and seen pacing for a short period. Plan: Pt. requires medication adjustments and a safe and supportive environment.
[2022-08-03 19:40] VITALS: BP 122/79
[2022-08-03] MEDS: olanzapine 10mg tablet PO SCH (20:03)
--- NOTE | 2022-08-04 04:09 | NUR ---
Nursing Progress Note: Problem: Pt. was admitted to the unit on a gurney via EMS transport from [facility]. Pt. is on a 5150 for DTS and GD. Per 5150: Pt. admitted to ongoing derogatory, disturbing auditory hallucinations. Pt. appeared distracted and disorganized. Pt. did not know if she could keep herself safe. Pt. has a history of schizophrenia and depression and was not taking medications. Interventions: Provide medication administration & medication management; Maintained a safe & supportive environment; Clear & simple instructions; Direction & encouragement regarding performance of ADLs; monitored behaviors & maintained clear boundaries; Patient physical assessment & 1:1 patient interview; Therapeutic conversation & active listening; Patient education & monitoring. Response: Upon change of shift noted patient sitting up in bed coloring with crayons. Patient pleasant, calm, friendly and approachable. In 1:1 noted dysarthria in speech and this is her baseline from brain injury. Thoughts linear. Did not notice any response to internal stimuli. Denies SI, HI, and A/V H. Compliant with HS meds. No PRN meds given. Removed Nicotine patch. Able to vocalize needs. Slept throughout the night without any complaints. Will continue to monitor. Plan: Pt. requires medication adjustments and a safe and supportive environment.
[2022-08-04 07:38] VITALS: BP 114/67
[2022-08-04] MEDS: levetiracetam 250mg tablet PO SCH ×2 (07:50→20:08)
[2022-08-04] MEDS: sertraline 50mg tablet PO SCH (07:51)
[2022-08-04] MEDS: nicotine 14mg patch - 24hr TD SCH (07:51)
[2022-08-04] MEDS: multivitamins, therapeutics tablet PO SCH (07:51)
[2022-08-04] MEDS: folic acid 1mg tablet PO SCH (07:51)
[2022-08-04] MEDS: pantoprazole 40mg Tablet.DR PO SCH (07:51)
[2022-08-04] MEDS: LORazepam 1 MG tablet PO SCH (12:26)
[2022-08-04] MEDS: OLANZAPINE 5 MG TABLET PO SCH (12:26)
--- NOTE | 2022-08-04 15:55 | NUR ---
Nursing Progress Note: Problem: Pt. was admitted to the unit on a gurney via EMS transport from [facility]. Pt. is on a 5150 for DTS and GD. Per 5150: Pt. admitted to ongoing derogatory, disturbing auditory hallucinations. Pt. appeared distracted and disorganized. Pt. did not know if she could keep herself safe. Pt. has a history of schizophrenia and depression and was not taking medications. Interventions: Provide medication administration & medication management; Maintained a safe & supportive environment; Clear & simple instructions; Direction & encouragement regarding performance of ADLs; monitored behaviors & maintained clear boundaries; Patient physical assessment & 1:1 patient interview; Therapeutic conversation & active listening; Patient education & monitoring. Response: Received pt. asleep at change of shift. Pt awoke for breakfast. Pt showered this morning and voiced she feels great now that she has showered. 1:1 done at bedside and medications administered without issues. Pt endorses AH, but states they are quiet and she can barely hear what they are saying. Pt was polite, cooperative and friendly during one on one. Denies VH. Denies S/HI. States she slept good last night. Pt seen walking the halls in attempt to get some exercise in. Did not attend group. Plan: Pt. requires medication adjustments and a safe and supportive environment.
[2022-08-04] MEDS: acetaminophen 325mg tablet PO PRN (16:32)
[2022-08-04 19:00] VITALS: BP 115/75
[2022-08-04] MEDS: olanzapine 10mg tablet PO SCH (20:08)
--- NOTE | 2022-08-05 04:52 | NUR ---
Nursing Progress Note: Problem: Pt. was admitted to the unit on a gurney via EMS transport from [facility]. Pt. is on a 5150 for DTS and GD. Per 5150: Pt. admitted to ongoing derogatory, disturbing auditory hallucinations. Pt. appeared distracted and disorganized. Pt. did not know if she could keep herself safe. Pt. has a history of schizophrenia and depression and was not taking medications. Interventions: Provide medication administration & medication management; Maintained a safe & supportive environment; Clear & simple instructions; Direction & encouragement regarding performance of ADLs; monitored behaviors & maintained clear boundaries; Patient physical assessment & 1:1 patient interview; Therapeutic conversation & active listening; Patient education & monitoring. Response: Upon change of shift noted patient sitting up in TV room watching TV. Noted to be anxious. On 1:1 patient expressed anxiety. Performed some deep breathing exercises with her. She expressed improvement. Thoughts linear and speech dysarthric at baseline. No internal stimuli noted. Denies SI, HI, and A/V H. Compliant with HS meds. PRN Ativan administered. Removed Nicotine patch. Slept throughout the night without any complaints. No odd behaviors. Slept throughout the night. Will continue to monitor. Plan: Pt. requires medication adjustments and a safe and supportive environment.
[2022-08-05] MEDS: sertraline 50mg tablet PO SCH (07:55)
[2022-08-05] MEDS: multivitamins, therapeutics tablet PO SCH (07:56)
[2022-08-05] MEDS: pantoprazole 40mg Tablet.DR PO SCH (07:56)
[2022-08-05] MEDS: folic acid 1mg tablet PO SCH (07:56)
[2022-08-05] MEDS: levetiracetam 250mg tablet PO SCH ×2 (07:56→20:12)
[2022-08-05] MEDS: nicotine 14mg patch - 24hr TD SCH (07:56)
[2022-08-05 08:00] VITALS: BP 123/60
[2022-08-05] MEDS: OLANZAPINE 5 MG TABLET PO SCH (12:22)
[2022-08-05] MEDS: LORazepam 1 MG tablet PO SCH (12:23)
--- NOTE | 2022-08-05 14:10 | NUR ---
Spoke with Nieves's ex-, Anirudh (ph# [phone]), who reported he has been working on Nieves's trailer. He reported they were able to get rid of the roaches and removed the black mold. He reported the trailer is still in dis-repair and it will take another week or two to finish repairing it. He expressed concern about Nieves being able to care for herself. Her son Kavin considered moving in with her, however, due to the condition of the trailer is won't. Informed Anirudh she will be discharging soon. He was unable to think of another place Nieves can stay until her trailer is fixed. Informed Nieves that Anirudh is working on her trailer and she stated she does not want him involved and that nothing needs to be repaired. She stated she knows how to clean her trailer and it is fine. She stated she only wants Anirudh to feed her cat, nothing else. Sleeve Separator will make an APS report to [facility] regarding the trailer. MELISSA Tavarez
--- NOTE | 2022-08-05 14:50 | NUR ---
Left message with [facility] requesting a call back (ph# [phone]). MELISSA Tavarez
[2022-08-05] MEDS: NICOTINE POLACRILEX 2 MG LOZENGE BC PRN (16:07)
--- NOTE | 2022-08-05 17:07 | NUR ---
Nursing Progress Note: Problem: Pt. was admitted to the unit on a gurney via EMS transport from [facility]. Pt. is on a 5150 for DTS and GD. Per 5150: Pt. admitted to ongoing derogatory, disturbing auditory hallucinations. Pt. appeared distracted and disorganized. Pt. did not know if she could keep herself safe. Pt. has a history of schizophrenia and depression and was not taking medications. Interventions: Provide medication administration & medication management; Maintained a safe & supportive environment; Clear & simple instructions; Direction & encouragement regarding performance of ADLs; monitored behaviors & maintained clear boundaries; Patient physical assessment & 1:1 patient interview; Therapeutic conversation & active listening; Patient education & monitoring. Response: Patient seen on her bed at shift change. She had just woke up and was getting ready for breakfast. Patient was compliant with her AM meds. After breakfast she stays in the group room with her peers. She reports that shes doing well, and has no needs. Patient is quiet and doesnt talk much, but this nurse has found that she has a sense of humor. She naps in between meals, but is up for groups. She denies all MH symptoms. Patient appears to be baseline. Plan: Pt. requires medication adjustments and a safe and supportive environment.
[2022-08-05 19:00] VITALS: BP 109/77
[2022-08-05] MEDS: olanzapine 10mg tablet PO SCH (20:12)
[2022-08-05] MEDS: acetaminophen 325mg tablet PO PRN (20:13)
--- NOTE | 2022-08-06 04:24 | NUR ---
Nursing Progress Note: Problem: Pt. was admitted to the unit on a gurney via EMS transport from [facility]. Pt. is on a 5150 for DTS and GD. Per 5150: Pt. admitted to ongoing derogatory, disturbing auditory hallucinations. Pt. appeared distracted and disorganized. Pt. did not know if she could keep herself safe. Pt. has a history of schizophrenia and depression and was not taking medications. Interventions: Provide medication administration & medication management; Maintained a safe & supportive environment; Clear & simple instructions; Direction & encouragement regarding performance of ADLs; monitored behaviors & maintained clear boundaries; Patient physical assessment & 1:1 patient interview; Therapeutic conversation & active listening; Patient education & monitoring. Response: Patient was received sitting in room reading at change of shift. Patient made her way into community room where she socialized with other patients and watched tv. Patient came to nurse asking for prn Tylenol for 7/10 headache. Patient was cooperative and denied AH/VH. Patient took mall night time medications without difficulty and retuned to community room until eventually going to bed. Plan: Pt. requires medication adjustments and a safe and supportive environment.
[2022-08-06] MEDS: nicotine 14mg patch - 24hr TD SCH (07:26)
[2022-08-06] MEDS: multivitamins, therapeutics tablet PO SCH (07:27)
[2022-08-06] MEDS: folic acid 1mg tablet PO SCH (07:27)
[2022-08-06] MEDS: pantoprazole 40mg Tablet.DR PO SCH (07:27)
[2022-08-06] MEDS: levetiracetam 250mg tablet PO SCH ×2 (07:27→20:27)
[2022-08-06] MEDS: sertraline 50mg tablet PO SCH (07:27)
[2022-08-06 08:00] VITALS: BP 109/78
[2022-08-06] MEDS: OLANZAPINE 5 MG TABLET PO SCH (12:12)
[2022-08-06] MEDS: LORazepam 1 MG tablet PO SCH (12:12)
--- NOTE | 2022-08-06 16:46 | NUR ---
Nursing Progress Note: Problem: Pt. was admitted to the unit on a gurney via EMS transport from [facility]. Pt. is on a 5150 for DTS and GD. Per 5150: Pt. admitted to ongoing derogatory, disturbing auditory hallucinations. Pt. appeared distracted and disorganized. Pt. did not know if she could keep herself safe. Pt. has a history of schizophrenia and depression and was not taking medications. Interventions: 1:1 assessment, therapeutic conversation, active listening, ensured contract for safety, medication administration/education/monitoring, provided distraction, direction, positive reinforcement, and Q15 minute safety checks. Response: Pt was up before breakfast. Pt was cooperative with her medications. Pt admitted to feeling "a little" depressed. Pt denied SI. Pt did have some AH, "chatting." Pt did not focus on what the voices were saying. Plan: Pt's voices have gotten quieter. Pt in need of a safe and therapeutic environment until a viable discharge plan can be arranged.
[2022-08-06] MEDS: acetaminophen 325mg tablet PO PRN (18:52)
[2022-08-06 19:25] VITALS: BP 116/69
[2022-08-06] MEDS: olanzapine 10mg tablet PO SCH (20:27)
--- NOTE | 2022-08-07 03:18 | NUR ---
TUNNEL MUCKER documentation: I have reviewed and agree with all interventions, assessments performed and documented by Loraine Santos
--- NOTE | 2022-08-07 03:32 | NUR ---
Nursing Progress Note: Problem: Pt. was admitted to the unit on a gurney via EMS transport from [facility]. Pt. is on a 5150 for DTS and GD. Per 5150: Pt. admitted to ongoing derogatory, disturbing auditory hallucinations. Pt. appeared distracted and disorganized. Pt. did not know if she could keep herself safe. Pt. has a history of schizophrenia and depression and was not taking medications. Interventions: 1:1 assessment, therapeutic conversation, active listening, ensured contract for safety, medication administration/education/monitoring, provided distraction, direction, positive reinforcement, and Q15 minute safety checks. Response: Patient was received sitting in chair in community room reading at beginning of shift. Patient came up to nurse asking for Tylenol to for neck pain. Patient took medication and returned to reading. Patient participated and snack and then came to nurse asking for scheduled night medications. Patient is still complaining of constant voices in the background driving her crazy but they are no where as bad as they were when she first got here. Plan: Pt's voices have gotten quieter. Pt in need of a safe and therapeutic environment until a viable discharge plan can be arranged.
[2022-08-07] MEDS: multivitamins, therapeutics tablet PO SCH (07:38)
[2022-08-07] MEDS: levetiracetam 250mg tablet PO SCH ×2 (07:38→20:03)
[2022-08-07] MEDS: pantoprazole 40mg Tablet.DR PO SCH (07:38)
[2022-08-07] MEDS: sertraline 50mg tablet PO SCH (07:39)
[2022-08-07] MEDS: folic acid 1mg tablet PO SCH (07:39)
[2022-08-07] MEDS: nicotine 14mg patch - 24hr TD SCH (07:44)
[2022-08-07 08:00] VITALS: BP 117/79
[2022-08-07] MEDS: acetaminophen 325mg tablet PO PRN ×2 (09:37→20:03)
[2022-08-07] MEDS: LORazepam 1 MG tablet PO SCH (11:59)
[2022-08-07] MEDS: OLANZAPINE 5 MG TABLET PO SCH (12:00)
--- NOTE | 2022-08-07 14:26 | NUR ---
Nursing Progress Note: Problem: Pt. was admitted to the unit on a gurney via EMS transport from [facility]. Pt. is on a 5150 for DTS and GD. Per 5150: Pt. admitted to ongoing derogatory, disturbing auditory hallucinations. Pt. appeared distracted and disorganized. Pt. did not know if she could keep herself safe. Pt. has a history of schizophrenia and depression and was not taking medications. Interventions: 1:1 assessment, therapeutic conversation, active listening, ensured contract for safety, medication administration/education/monitoring, provided distraction, direction, positive reinforcement, and Q15 minute safety checks. Response: Pt was up before breakfast. Pt was cooperative with her medications. Pt c/o 7 headache pain and was given PRN Tylenol 650 mg at 0937 with good effect. Pt reports that she is experiencing AH, "quiet but constant...they went away but they came back." Pt denied SI. Pt's 1200 Zyprexa was increased from 5 mg to 10 mg daily. Pt attended group. Pt socializes with her roommate. Pt spends time in her room reading, doing search word puzzles, and coloring. Plan: Pt's auditory hallucinations have started up again, quieter than before but constant. Pt's medication was adjusted. Pt in need of a safe and therapeutic environment until stable and a viable discharge plan can be arranged.
[2022-08-07 19:49] VITALS: BP 116/76
[2022-08-07] MEDS: olanzapine 10mg tablet PO SCH (20:02)
--- NOTE | 2022-08-08 04:51 | NUR ---
Nursing Progress Note: Problem: Pt. was admitted to the unit on a gurney via EMS transport from [facility]. Pt. is on a 5150 for DTS and GD. Per 5150: Pt. admitted to ongoing derogatory, disturbing auditory hallucinations. Pt. appeared distracted and disorganized. Pt. did not know if she could keep herself safe. Pt. has a history of schizophrenia and depression and was not taking medications. Interventions: 1:1 assessment, therapeutic conversation, active listening, ensured contract for safety, medication administration/education/monitoring, provided distraction, direction, positive reinforcement, and Q15 minute safety checks. Response: Patient was found coloring in community room with roommate at change of shift. Patient came up to nurse asking for Tylenol for her constant headache and neck pain. Nurse brought prn tyenol in night medications which patient took without issue, Patient denies VH but says she has been having AH. Patient stated they were very annoying and like constant background noise and she tries to ignore. Patient was positive and cooperative during shift. Patient participated in snack and games in community room before going to bed Plan: Pt's auditory hallucinations have started up again, quieter than before but constant. Pt in need of a safe and therapeutic environment until stable and a viable discharge plan can be arranged.
[2022-08-08] MEDS: sertraline 50mg tablet PO SCH (07:30)
[2022-08-08] MEDS: folic acid 1mg tablet PO SCH (07:30)
[2022-08-08] MEDS: nicotine 14mg patch - 24hr TD SCH (07:30)
[2022-08-08] MEDS: levetiracetam 250mg tablet PO SCH ×2 (07:31→20:50)
[2022-08-08] MEDS: pantoprazole 40mg Tablet.DR PO SCH (07:31)
[2022-08-08] MEDS: multivitamins, therapeutics tablet PO SCH (07:31)
[2022-08-08 08:00] VITALS: BP 109/63
[2022-08-08] MEDS: LORazepam 1 MG tablet PO PRN (10:24)
[2022-08-08] MEDS: olanzapine 10mg tablet PO PRN (10:26)
[2022-08-08] MEDS: LORazepam 1 MG tablet PO SCH (12:57)
[2022-08-08] MEDS: OLANZAPINE 5 MG TABLET PO SCH (12:57)
--- NOTE | 2022-08-08 17:27 | NUR ---
Nursing Progress Note: Problem: Pt. was admitted to the unit on a gurney via EMS transport from [facility]. Pt. is on a 5150 for DTS and GD. Per 5150: Pt. admitted to ongoing derogatory, disturbing auditory hallucinations. Pt. appeared distracted and disorganized. Pt. did not know if she could keep herself safe. Pt. has a history of schizophrenia and depression and was not taking medications. Interventions: Provide medication administration & medication management; Maintained a safe & supportive environment; Clear & simple instructions; Direction & encouragement regarding performance of ADLs; monitored behaviors & maintained clear boundaries; Patient physical assessment & 1:1 patient interview; Therapeutic conversation & active listening; Patient education & monitoring. Response: Received patient at approximately 0715 while she was sitting in the Community Room drinking coffee this morning. Patient reported Im doing great, when asked how her morning was going. Patient ate breakfast and then was observed going in and out of her room and standing just outside the charting room door. Went to speak to the patient privately and she informed me I woke up feeling really good today but now Im feeling so down and depressed, and the voices are so loud and constant. Informed the patient she has Ativan and Zyprexa ordered together but not until noon, so she received a dose at 1025. Patient was reassured and laid down to take a nap but did not fall asleep. Patient ambulated to the dining room and was administered her 1200 medications which were given around 1245 and they were Ativan and Zyprexa. Patient returned to her bed at 1320 and fell asleep this time and appeared to be resting comfortably at 1435. Plan: Pt. requires medication adjustments and a safe and supportive environment.
[2022-08-08 19:36] VITALS: BP 119/78
[2022-08-08] MEDS: olanzapine 10mg tablet PO SCH (20:50)
[2022-08-08] MEDS: traZODone 50mg tablet PO PRN (20:50)
--- NOTE | 2022-08-09 00:41 | NUR ---
Nursing Progress Note: Problem: Pt. was admitted to the unit on a gurney via EMS transport from [facility]. Pt. is on a 5150 for DTS and GD. Per 5150: Pt. admitted to ongoing derogatory, disturbing auditory hallucinations. Pt. appeared distracted and disorganized. Pt. did not know if she could keep herself safe. Pt. has a history of schizophrenia and depression and was not taking medications. Interventions: Provide medication administration & medication management; Maintained a safe & supportive environment; Clear & simple instructions; Direction & encouragement regarding performance of ADLs; monitored behaviors & maintained clear boundaries; Patient physical assessment & 1:1 patient interview; Therapeutic conversation & active listening; Patient education & monitoring. Response: Pt in room awake coloring a picture. Pt is pleasant and cooperative. She says she is depressed. "I have been feeling much better but today my depression and anxiety is really bad". She does not have active SI or a plan but she says "I feel like I don't want to be alive." She reports A/H that tell her "don't go home." Pt has a mobile home in [place] in [place] to go home to but she is not ready "I will be staying here for another week." Pt up to group room for snack, took all meds is pleasant and cooperative and went to sleep. Plan: Pt. requires medication adjustments and a safe and supportive environment.
[2022-08-09] MEDS: pantoprazole 40mg Tablet.DR PO SCH (07:28)
[2022-08-09] MEDS: sertraline 50mg tablet PO SCH (07:28)
[2022-08-09] MEDS: folic acid 1mg tablet PO SCH (07:28)
[2022-08-09] MEDS: nicotine 14mg patch - 24hr TD SCH (07:28)
[2022-08-09] MEDS: levetiracetam 250mg tablet PO SCH ×2 (07:28→20:17)
[2022-08-09] MEDS: multivitamins, therapeutics tablet PO SCH (07:29)
[2022-08-09 08:00] VITALS: BP 129/77
[2022-08-09] MEDS: LORazepam 1 MG tablet PO SCH (12:28)
[2022-08-09] MEDS: OLANZAPINE 5 MG TABLET PO SCH (12:28)
--- NOTE | 2022-08-09 12:45 | NUR ---
Left message with [facility] requesting a call back (ph# [phone]). MELISSA Tavarez
--- NOTE | 2022-08-09 17:14 | NUR ---
Nursing Progress Note: Problem: Pt. was admitted to the unit on a gurney via EMS transport from [facility]. Pt. is on a 5150 for DTS and GD. Per 5150: Pt. admitted to ongoing derogatory, disturbing auditory hallucinations. Pt. appeared distracted and disorganized. Pt. did not know if she could keep herself safe. Pt. has a history of schizophrenia and depression and was not taking medications. Interventions: Provide medication administration & medication management; Maintained a safe & supportive environment; Clear & simple instructions; Direction & encouragement regarding performance of ADLs; monitored behaviors & maintained clear boundaries; Patient physical assessment & 1:1 patient interview; Therapeutic conversation & active listening; Patient education & monitoring. Response: Received patient who was awake early and waited for the coffee to be served at 0700. Patient appears apprehensive and reports she is a bit anxious but refused the Ativan prn dose. Patient took her Ativan and Zyprexa at 1200. Patient ambulated in the halls and attended part of the Group Meeting that focused on Communication. Patient laid down after lunch and again participated in snack times. Patient reports auditory hallucinations and stated Sometimes they scare me because I cant control them and they are only getting worse. Will continue to monitor the patient closely. Plan: Pt. requires medication adjustments and a safe and supportive environment.
[2022-08-09 20:00] VITALS: BP 115/73
[2022-08-09] MEDS: olanzapine 10mg tablet PO SCH (20:17)
--- NOTE | 2022-08-10 02:00 | NUR ---
Nursing Progress Note: Problem: Pt. was admitted to the unit on a gurney via EMS transport from [facility]. Pt. is on a 5150 for DTS and GD. Per 5150: Pt. admitted to ongoing derogatory, disturbing auditory hallucinations. Pt. appeared distracted and disorganized. Pt. did not know if she could keep herself safe. Pt. has a history of schizophrenia and depression and was not taking medications. Interventions: Provide medication administration & medication management; Maintained a safe & supportive environment; Clear & simple instructions; Direction & encouragement regarding performance of ADLs; monitored behaviors & maintained clear boundaries; Patient physical assessment & 1:1 patient interview; Therapeutic conversation & active listening; Patient education & monitoring. Response: Received patient sitting up in bed doing a word search. She wears green scrubs and is pleasant and cooperative. Speech is dysarthric at baseline and thoughts are clear. Denies SI, HI, and A/VH at this time. Reports AH earlier today. States, I notice voices on occasion but not now. States she believes next week shell be discharging but unsure on details. Compliant with HS meds. No PRNs given. Nicotine patch removed. VS stable. Will continue to monitor. Plan: Pt. requires medication adjustments and a safe and supportive environment.
[2022-08-10] MEDS: nicotine 14mg patch - 24hr TD SCH (07:42)
[2022-08-10] MEDS: multivitamins, therapeutics tablet PO SCH (07:43)
[2022-08-10] MEDS: sertraline 50mg tablet PO SCH (07:43)
[2022-08-10] MEDS: folic acid 1mg tablet PO SCH (07:43)
[2022-08-10] MEDS: levetiracetam 250mg tablet PO SCH ×2 (07:43→20:16)
[2022-08-10] MEDS: pantoprazole 40mg Tablet.DR PO SCH (07:43)
[2022-08-10 08:00] VITALS: BP 132/72
[2022-08-10] MEDS: acetaminophen 325mg tablet PO PRN (10:06)
[2022-08-10] MEDS: OLANZAPINE 5 MG TABLET PO SCH (12:43)
[2022-08-10] MEDS: LORazepam 1 MG tablet PO SCH (12:43)
--- NOTE | 2022-08-10 15:12 | NUR ---
DISCHARGE PLANNING Scheduled follow up with [facility]. 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 Once discharge date is confirmed will call [facility] transport to see if they will pick her up. Nieves reported she does not have any family that can pick her up. Homer does not go from [place] to [place]. MELISSA Tavarez
--- NOTE | 2022-08-10 17:12 | NUR ---
Nursing Progress Note: Problem: Pt. was admitted to the unit on a gurney via EMS transport from [facility]. Pt. is on a 5150 for DTS and GD. Per 5150: Pt. admitted to ongoing derogatory, disturbing auditory hallucinations. Pt. appeared distracted and disorganized. Pt. did not know if she could keep herself safe. Pt. has a history of schizophrenia and depression and was not taking medications. Interventions: Provide medication administration & medication management; Maintained a safe & supportive environment; Clear & simple instructions; Direction & encouragement regarding performance of ADLs; monitored behaviors & maintained clear boundaries; Patient physical assessment & 1:1 patient interview; Therapeutic conversation & active listening; Patient education & monitoring. Response: Received patient at 0645 who was sitting up on her bed and reading when I entered her room. Patient assessment and interview done and patient was asked about her possible discharge in the near future. Patients response was I dont think anybody can pick me up including my dad. Asked the patient if she had informed her web content & social media manager, NATE Rodriguez, about not having a ride home and she responded Im not sure. Patient has dysarthria and it is difficult for her to formulate words then pronounce them, while maintaining her thought process on what she would like to say. Patient took her medications without hesitation. Patient is on voluntary status and was informed that she needed to attend the Group Meeting. Patient was an active listener during the group meeting, but did not offer any verbalization to the members of the Group Meeting. Patient slept after breakfast and after lunch for approximately 3 hours each time. Will continue to encourage the patient to attend the Group Meeting. Plan: Pt. requires medication adjustments and a safe and supportive environment.
[2022-08-10 20:00] VITALS: BP 117/82
[2022-08-10] MEDS: traZODone 50mg tablet PO PRN (20:14)
[2022-08-10] MEDS: olanzapine 10mg tablet PO SCH (20:15)
[2022-08-10] MEDS: NICOTINE POLACRILEX 2 MG LOZENGE BC PRN (20:15)
--- NOTE | 2022-08-10 22:40 | NUR ---
Nursing Progress Note: Problem: Pt. was admitted to the unit on a gurney via EMS transport from [facility]. Pt. is on a 5150 for DTS and GD. Per 5150: Pt. admitted to ongoing derogatory, disturbing auditory hallucinations. Pt. appeared distracted and disorganized. Pt. did not know if she could keep herself safe. Pt. has a history of schizophrenia and depression and was not taking medications. Interventions: One to one with the patient to assess severity of thought disorder, mood and for medication side effects. She is on q 15 minute safety checks and was assessed for self harm risk. Physical assessment completed and assessed for medication side effects. Response: The patient has been on the unit. She is friendly and social with peers and staff. She stated that she is feeling better than when she was first admitted. She did state that in the morning she felt more depressed in the morning and had some suicidal thoughts and at times has thought that she wanted to . She stated that she feels that the frequency of those thoughts have decreased since admit. She also stated that she has felt better as the day has gone on. She reports "occasional" voices telling her negative things about herself and that she shouldn't be alive. She reports that the voices are also worse in the am. She denies visual hallucinations. Plan: Continue q 15 minute safety checks. Assess for self harm and severity of disordered thought processes at least q shift and as needed. Provide PRN medication for increased psychosis. Assess for medication side effects.
[2022-08-11] MEDS: sertraline 50mg tablet PO SCH (07:46)
[2022-08-11] MEDS: pantoprazole 40mg Tablet.DR PO SCH (07:46)
[2022-08-11] MEDS: levetiracetam 250mg tablet PO SCH ×2 (07:46→20:06)
[2022-08-11] MEDS: multivitamins, therapeutics tablet PO SCH (07:46)
[2022-08-11] MEDS: folic acid 1mg tablet PO SCH (07:46)
[2022-08-11] MEDS: nicotine 14mg patch - 24hr TD SCH (07:46)
[2022-08-11 08:00] VITALS: BP 122/75
[2022-08-11] MEDS: LORazepam 1 MG tablet PO SCH (11:54)
[2022-08-11] MEDS: OLANZAPINE 5 MG TABLET PO SCH (11:54)
--- NOTE | 2022-08-11 13:01 | NUR ---
DISCHARGE PLANNING-SKIP TENDER 9 AM THURS 08/12/22 Nieves is discharging tomorrow. [facility] transport is scheduled to pick her up at 9 AM. Requested they call and inform when they arrive or are close to arrival. They will want Nieves waiting downstairs. Follow up has been scheduled with [facility]. [facility] Transport-# [phone] Confirmation# [id number] MELISSA Tavarez
[2022-08-11] MEDS: LORazepam 1 MG tablet PO PRN (17:16)
--- NOTE | 2022-08-11 17:19 | NUR ---
Nursing Progress Note: Nieves Problem: Pt. admitted from [facility]. Pt. is on a 5150 for DTS and GD. Per 5150: Pt. ongoing derogatory, disturbing auditory hallucinations. Pt. appeared distracted and disorganized. Pt. did not know if she could keep herself safe. Pt. has a history of schizophrenia and depression and was not taking medications. Currently on VOL. Interventions: Medication administration, 1:1 MH assessment, maintained a safe and supportive environment, provided clear and simple instructions, provided encouragement regarding performance of ADLs, monitored behaviors and maintained clear boundaries, maintained Q15 minute safety checks. Response: Pt. received asleep and awoke to take her medications. She denies SI, HI, AH, VH with a DC plan to leave tomorrow at [address]. She speaks in a slow pace with delays in her responses. Pt. attended group, and ate all meals in the main dining area with cohorts. She spent most of the shift in her room coloring or organizing her belongings. And presents as upbeat and smiles often but spends a lot of time in her room alone. She has good hygiene, has make up on, and wears street clothes. Pt. requested PRN for anxiety; Ativan administered pending results. Plan: Pt. requires medication adjustments and a safe and supportive environment.
--- NOTE | 2022-08-11 17:48 | NUR ---
DRY PRESS OPERATOR HELPER documentation: I have reviewed and agree with all interventions, assessments performed and documented by Ирина Wong.
[2022-08-11] MEDS: acetaminophen 325mg tablet PO PRN (18:48)
[2022-08-11 20:00] VITALS: BP 125/90
[2022-08-11] MEDS: olanzapine 10mg tablet PO SCH (20:05)
[2022-08-11] MEDS: traZODone 50mg tablet PO PRN (20:06)
--- NOTE | 2022-08-11 23:27 | NUR ---
Nursing Progress Note: Problem: Pt. was admitted to the unit on a gurney via EMS transport from [facility]. Pt. is on a 5150 for DTS and GD. Per 5150: Pt. admitted to ongoing derogatory, disturbing auditory hallucinations. Pt. appeared distracted and disorganized. Pt. did not know if she could keep herself safe. Pt. has a history of schizophrenia and depression and was not taking medications. Interventions: One to one with the patient to assess severity of thought disorder, mood and for medication side effects. She is on q 15 minute safety checks and was assessed for self harm risk. Physical assessment completed. Response: The patient was very pleasant and friendly with staff and peers. She did report anxiety about discharging in the am as well as having a headache. She was given Tylenol with resolution of her headache. She is medication compliant. She stated her mood is good this evening but when she initially woke up she was feeling "real grumpy" She did state that she was very happy to receive her new glasses in the mail. She denied voices. When asked about paranoia she stated that it was decreased. She stated that she was able to discount the paranoia. She did appear disheveled but stated she planned to take a shower tomorrow before she left. She denies thoughts to harm herself or others. Plan; [place].
[2022-08-12] MEDS ORDERED: OLAN10TA21 PO (07:10)
[2022-08-12] MEDS ORDERED: NICO-631 TD (07:10)
[2022-08-12] MEDS ORDERED: TRAZ-251 PO (07:10)
[2022-08-12] MEDS ORDERED: SERT-434 PO (07:10)
[2022-08-12] MEDS ORDERED: LORA-268 PO ×2 (07:10→07:11)
[2022-08-12] MEDS ORDERED: OLAN10TA73 PO (07:13)
[2022-08-12 07:20] VITALS: BP 96/58
--- NOTE | 2022-08-12 08:02 | NUR ---
F/u 08/12: Pt PO 100% avg regular diet meeting estimated nutrient needs. LBM 08/11. No nutrition intervention implemented at this time. Will continue to follow. Recommendations: 1) Continue regular diet 2) Bowel care PRN 3) Weekly scaled weights Addendum: 08/12/22 at [address] Amended: Links added.
[2022-08-12] MEDS: multivitamins, therapeutics tablet PO SCH (08:15)
[2022-08-12] MEDS: pantoprazole 40mg Tablet.DR PO SCH (08:15)
[2022-08-12] MEDS: folic acid 1mg tablet PO SCH (08:15)
[2022-08-12] MEDS: levetiracetam 250mg tablet PO SCH (08:15)
[2022-08-12] MEDS: sertraline 50mg tablet PO SCH (08:15)
[2022-08-12] MEDS: nicotine 14mg patch - 24hr TD SCH (08:15)
== END 2022-08-12 09:00 | disposition home or self-care (01) | DRG 885 ==
LOC: ADULT MH 13:44
PROVIDERS: ADMIT Psychiatry & Neurology Psychiatry; ATTEND Psychiatry & Neurology Psychiatry
DX: F33.3 Major depressive disorder, recurrent, severe with psychotic symptoms (principal); R45.851 Suicidal ideations; F15.10 Other stimulant abuse, uncomplicated; F17.210 Nicotine dependence, cigarettes, uncomplicated; F10.10 Alcohol abuse, uncomplicated; F41.9 Anxiety disorder, unspecified; G40.909 Epilepsy, unspecified, not intractable, without status epilepticus; K21.9 Gastro-esophageal reflux disease without esophagitis; Z91.14 Patient's other noncompliance with medication regimen
CPT/HCPCS: 36415; 80053; 80061; 83036; 83735; 84100; 84443; 85025; 86704; 86705; 86706; 87081; 87340